=== PATIENT | male | born 1935 | race Two or more races ===

== ENCOUNTER 2019-02-17 17:51 | Inpatient (IN) ==
[2019-02-17 18:21] LABS: Basophils # (auto) 0.03 K/uL (0-0.2); Basophils % (auto) 0.5 %; Eosinophils # (auto) 0.24 K/uL (0-0.5); Eosinophils % (auto) 3.9 %; Hematocrit (blood only) 40.2 % (42-52); Hemoglobin 13.5 g/dL (14.0-18.0); Immature Granulocytes # (auto) 0.01 K/uL (0.00-0.02); Immature Granulocytes % (auto) 0.2 %; Lymphocytes # (auto) 1.85 K/uL (1.2-3.4); Mean Corpuscular Hgb Conc 33.6 g/dL (32-36); Mean Corpuscular Volume 89.7 fL (80-100); Mean Platelet Volume 12.4 fL (7.4-10.4); Monocytes # (auto) 0.51 K/uL (0.11-0.59); Monocytes % (auto) 8.3 %; Neutrophils # (auto) 3.53 K/uL (1.4-6.5); Neutrophils % (auto) 57.1 %; Platelet Count 149 K/uL (130-400); RDW Coefficient of Variation 13.4 % (11.5-14.5); RDW Standard Deviation 43.7 fL (36.4-46.3); Red Blood Count 4.48 M/uL (4.7-6.1); White Blood Count 6.17 K/uL (4.8-10.8)
[2019-02-17] MEDS ORDERED: ALBUT/IPRATROP 3MG/0.5MG NEB 3 ML VIAL NEB STA (18:34)
--- NOTE | 2019-02-17 18:39 | XRay Report ---
XR chest 1V portable HISTORY: Atypical Chest Pain COMPARISON: None. FINDINGS: No pneumothorax. No pleural effusions. The heart is top normal in size. There are poststern otomy changes. No focal lung consolidations to suggest pneumonia. No evidence for pulmonary edema. Qu estionable 9 mm nodule within the right upper lobe. IMPRESSION: 1. No acute process within the chest. 2. Questionable 9 mm nodule within the right upper lobe. This could be due to overlapping ribs. Follo w-up nonemergent PA and lateral views the chest or nonemergent chest CT are recommended for further e valuation. Electronically signed by: Sj Smith M.D. 02/17/2019 6:38 PM
[2019-02-17 18:41] LABS: Albumin Level 3.5 gm/dl (3.4-5.0); BUN Creatinine Ratio 13.7 (10-20); Bilirubin Direct 0.1 mg/dl (0-0.2); Calcium 8.8 mg/dl (8.5-10.1); Creatinine Clr Calc Pharmacy 39.8 ml/min; Est GFR (African American) 56.2; Est GFR (Non-African American) 48.5; Magnesium 2.1 mg/dl (1.8-2.4); Potassium 4.4 mmol/L (3.5-5.1)
[2019-02-17 18:52] LABS: Albumin Globulin Ratio 0.8 (0.9-2); Bilirubin,Total 0.4 mg/dl (0.2-1); Globulin 4.5 gm/dl (2.5-4.0); Phosphorus 3.1 mg/dl (2.5-4.9); Troponin I 0.372 ng/ml (0-0.045)
[2019-02-17 18:58] LABS: Partial Thromboplastin Ratio 0.9; Partial Thromboplastin Time 25.7 Seconds (21.0-31.0); Prothrombin Time 10.4 Seconds (9.0-12.0)
[2019-02-17] MEDS ORDERED: ASPIRIN CHEW 324 MG PO STA (19:05)
--- NOTE | 2019-02-17 19:08 | Emergency Department Note ---
Entered by Jodee Nix acting as a scribe for Dave Lawrence MD History of Present Illness General Chief complaint: Chest Pain Stated complaint: CHEST PAIN Time Seen by Provider: 02/17/19 18:05 Source: family (son) History of Present Illness Provider complaint: chest pain Onset (ago): day(s) 1 Location: chest Radiation: non-radiation Maximum Pain Intensity: 4 Quality: + other (heaviness) Associated symptoms: + cough and + other (+dizziness); no fever/chills The patient is a 83 year old male who presents to the Emergency Room with complaints of heaviness in her chest. Per the patient's son, the patient had an episode of sharp chest pain that occurred prior to arrival while he was just sitting down watching TV. He states that the patient has had a mild cough. He states that the patient denies any fever or chills. The patients son states that the patient has felt dizzy. He states that the patient had a triple bypass in 2005 and a stent placed in 2009. He notes that the patient takes Aspirin. Home Medications Home Medications Medication Instructions Recorded Confirmed Type aspirin 81 mg PO DAILY 02/17/19 02/17/19 History atorvastatin 40 mg PO DAILY 02/17/19 02/17/19 History carvedilol 25 mg PO BID 02/17/19 02/17/19 History ramipril 10 mg PO DAILY 02/17/19 02/17/19 History ranitidine HCl 150 mg PO BID 02/17/19 02/17/19 History tamsulosin 0.4 mg PO DAILY 02/17/19 02/17/19 History Allergies Allergy/AdvReac Type Severity Reaction Status Date / Time No Known Allergies Allergy Unverified 02/17/19 18:32 Past Med/Surg History Medical History BPH (benign prostatic hyperplasia) (Chronic) CKD (chronic kidney disease), stage III (Chronic) Ischemic cardiomyopathy (Chronic) CAD (coronary artery disease) (Chronic) GERD (gastroesophageal reflux disease) (Chronic) HLD (hyperlipidemia) (Chronic) HTN (hypertension) (Chronic) Surgical History History of coronary artery bypass graft (Chronic) 2006: CABG X 3 in [place] History of cardiac cath (Chronic) 2009: KRISS to LAD at [facility] in [place] Stented coronary artery (Acute) Family History Sister Cancer Social History Preferred Language: Rory Communication Ability: Effective 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 and A total of 10 systems reviewed and were otherwise negative Physical Exam Vital Signs Vital Signs - 24 hr 02/17/19 17:55 02/17/19 18:07 02/17/19 18:08 Temperature 36.4 C L Temperature Source Oral Sepsis Recent Fever Within 48 Hours No Sepsis New/Unexplained Change in Mental Status No Sepsis Action Taken by Nursing No Action Required Pulse Rate 79 67 Pulse Rate [Apical] Pulse Rate from SpO2 Sensor 78 Respiratory Rate 18 22 Blood Pressure 139/70 152/75 H Blood Pressure [Left Arm] Blood Pressure Mean 93 100 Blood Pressure Mean [Left Arm] Pulse Oximetry 100 99 97 Oxygen Delivery Method Room Air Room Air 02/17/19 18:21 02/17/19 18:30 02/17/19 18:45 Temperature Temperature Source Sepsis Recent Fever Within 48 Hours Sepsis New/Unexplained Change in Mental Status Sepsis Action Taken by Nursing Pulse Rate 65 Pulse Rate [Apical] 68 57 L Pulse Rate from SpO2 Sensor 69 Respiratory Rate 24 18 16 Blood Pressure Blood Pressure [Left Arm] 125/62 Blood Pressure Mean Blood Pressure Mean [Left Arm] 83 Pulse Oximetry 94 99 96 Oxygen Delivery Method Room Air Room Air 02/17/19 19:27 Temperature Temperature Source Sepsis Recent Fever Within 48 Hours Sepsis New/Unexplained Change in Mental Status Sepsis Action Taken by Nursing Pulse Rate Pulse Rate [Apical] 71 Pulse Rate from SpO2 Sensor Respiratory Rate 18 Blood Pressure Blood Pressure [Left Arm] 122/67 Blood Pressure Mean Blood Pressure Mean [Left Arm] 85 Pulse Oximetry 99 Oxygen Delivery Method Room Air GENERAL: Awake, alert, fatigued appearing, no distress HENT: Normocephalic, atraumatic. TM's normal. Oropharynx with dry mucous membranes and otherwise unremarkable. EYES: PERRL. EOMI. Normal conjunctiva. Sclera non-icteric. NECK: Supple. No nuchal rigidity. FROM. No JVD or bruit. RESPIRATORY: CTAB CARDIAC: Regular rate and irregular rhythm. ABDOMEN: Soft, non distended. No tenderness to palpation. No rebound or guarding. No masses. RECTAL: Deferred. MUSCULOSKELETAL: Unremarkable. No edema. No discoloration. Gross motor strength symmetric. NEURO: Normal sensorium. No sensory or motor deficits noted. SKIN: No rash or jaundice noted. LYMPH: No adenopathy Course 1827: The patient was evaluated in room B3B, and a complete history and physical examination were performed. 1944: I discussed the patient's case with Dr. [facility], he will accept the patient for further evaluation. Consultations Consultation #1: Dr. Epifanio Pires Time: 19:45 Administered Medications Carvedilol (Coreg) 25 mg PO BID DAMIAN Stop: 03/19/19 20:59 Last Admin: 02/17/19 23:55 Dose: 25 mg Documented by: [id number] Heparin Sodium/Dextrose (Heparin Sodium/Dextrose) 25,000 units in 500 mls @ 25 mls/hr IV .Q20H DAMIAN; Protocol Stop: 03/19/19 20:14 Last Admin: 02/17/19 20:38 Dose: Not Given Documented by: [id number] Nitroglycerin (Nitro-Bid 2%) 0.5 inch EXT Q6H DAMIAN Stop: 03/19/19 21:59 Last Admin: 02/18/19 00:02 Dose: Not Given Documented by: [id number] Ranitidine HCl (Zantac) 150 mg PO BID DAMIAN Stop: 03/19/19 22:08 Last Admin: 02/17/19 23:54 Dose: 150 mg Documented by: [id number] Discontinued Medications Albuterol (Duoneb) 3 ml NEB NOW STA Stop: 02/17/19 18:35 Last Admin: 02/17/19 18:42 Dose: 3 ml Documented by: [id number] Aspirin (Aspirin) 324 mg PO NOW STA Stop: 02/17/19 19:06 Last Admin: 02/17/19 19:08 Dose: 324 mg Documented by: [id number] Heparin Sodium/Dextrose (Heparin Sodium/Dextrose) Confirm Administered Dose 25,000 units IV .STK-MED ONE Stop: 02/17/19 20:36 Last Admin: 02/17/19 20:36 Dose: 25 ml Documented by: [id number] Cosigned by: [id number] Nitroglycerin (Nitrostat) 0.4 mg SL NOW STA Stop: 02/17/19 19:28 Last Admin: 02/17/19 19:36 Dose: 0.4 mg Documented by: [id number] Nitroglycerin (Nitrostat) 0.4 mg SL NOW STA Stop: 02/17/19 20:29 Last Admin: 02/17/19 20:15 Dose: 0.4 mg Documented by: [id number] Medical Decision Making Differential Diagnosis Differential diagnosis: Etiologies such as cardiac ischemia, aortic dissection, pulmonary embolism, pneumonia, pneumothorax, musculoskeletal, infections, pericarditis, myocarditis, esophageal rupture, gastrointestinal, as well as others were entertained. Medical Records Attestation: I reviewed the patient's medical records. Home Medications Current Medication List: was personally reviewed by me Laboratory Data Attestation: I reviewed the patient's lab results. Result diagrams: 02/17/19 18:11 02/17/19 18:11 Lab Results 02/17/19 02/17/19 02/17/19 Range/Units 18:11 18:11 18:11 WBC 6.17 (4.8-10.8) K/uL RBC 4.48 L (4.7-6.1) M/uL Hgb 13.5 L (14.0-18.0) g/dL Hct 40.2 L (42-52) % MCV 89.7 (80-100) fL MCH 30.1 (25-34) pg MCHC 33.6 (32-36) g/dL RDW Std Deviation 43.7 (36.4-46.3) fL RDW Coeff of Cassidy 13.4 (11.5-14.5) % Plt Count 149 (130-400) K/uL MPV 12.4 H (7.4-10.4) fL Immature Gran % (Auto) 0.2 % Neut % (Auto) 57.1 % Lymph % (Auto) 30.0 % Dickey % (Auto) 8.3 % Eos % (Auto) 3.9 % Baso % (Auto) 0.5 % Immature Gran # (Auto) 0.01 (0.00-0.02) K/uL Neut # (Auto) 3.53 (1.4-6.5) K/uL Lymph # (Auto) 1.85 (1.2-3.4) K/uL Dickey # (Auto) 0.51 (0.11-0.59) K/uL Eos # (Auto) 0.24 (0-0.5) K/uL Baso # (Auto) 0.03 (0-0.2) K/uL PT (9.0-12.0) Seconds INR (0.9-1.1) APTT (21.0-31.0) Seconds PTT Ratio Sodium 136 (136-145) mmol/L Potassium 4.4 (3.5-5.1) mmol/L Chloride 106 (98-107) mmol/L Carbon Dioxide 26 (21-32) mmol/L Anion Gap 4.0 (3-11) BUN 19 H (7-18) mg/dl Creatinine 1.36 (0.6-1.4) mg/dl Est Cr Clr Drug Dosing 39.8 ml/min Est GFR ( Amer) 56.2 Est GFR (Non-Af Amer) 48.5 BUN/Creatinine Ratio 13.7 (10-20) Glucose 92 (70-99) mg/dl Calcium 8.8 (8.5-10.1) mg/dl Phosphorus 3.1 (2.5-4.9) mg/dl Magnesium 2.1 (1.8-2.4) mg/dl Total Bilirubin 0.4 (0.2-1) mg/dl Direct Bilirubin 0.1 (0-0.2) mg/dl AST 22 (15-37) U/L ALT 25 (12-78) U/L Alkaline Phosphatase 82 (45-117) U/L Troponin I 0.372 H* (0-0.045) ng/ml NT-Pro-B Natriuret Pep 3367 H Cancelled (0-1800) pg/ml Total Protein 8.0 (6.4-8.2) gm/dl Albumin 3.5 (3.4-5.0) gm/dl Globulin 4.5 H (2.5-4.0) gm/dl Albumin/Globulin Ratio 0.8 L (0.9-2) Lipase 142 (73-393) U/L TSH (0.300-4.500) uIu/ml 02/17/19 02/17/19 Range/Units 18:11 18:11 WBC (4.8-10.8) K/uL RBC (4.7-6.1) M/uL Hgb (14.0-18.0) g/dL Hct (42-52) % MCV (80-100) fL MCH (25-34) pg MCHC (32-36) g/dL RDW Std Deviation (36.4-46.3) fL RDW Coeff of Cassidy (11.5-14.5) % Plt Count (130-400) K/uL MPV (7.4-10.4) fL Immature Gran % (Auto) % Neut % (Auto) % Lymph % (Auto) % Dickey % (Auto) % Eos % (Auto) % Baso % (Auto) % Immature Gran # (Auto) (0.00-0.02) K/uL Neut # (Auto) (1.4-6.5) K/uL Lymph # (Auto) (1.2-3.4) K/uL Dickey # (Auto) (0.11-0.59) K/uL Eos # (Auto) (0-0.5) K/uL Baso # (Auto) (0-0.2) K/uL PT 10.4 (9.0-12.0) Seconds INR 1.0 (0.9-1.1) APTT 25.7 (21.0-31.0) Seconds PTT Ratio 0.9 Sodium (136-145) mmol/L Potassium (3.5-5.1) mmol/L Chloride (98-107) mmol/L Carbon Dioxide (21-32) mmol/L Anion Gap (3-11) BUN (7-18) mg/dl Creatinine (0.6-1.4) mg/dl Est Cr Clr Drug Dosing ml/min Est GFR ( Amer) Est GFR (Non-Af Amer) BUN/Creatinine Ratio (10-20) Glucose (70-99) mg/dl Calcium (8.5-10.1) mg/dl Phosphorus (2.5-4.9) mg/dl Magnesium (1.8-2.4) mg/dl Total Bilirubin (0.2-1) mg/dl Direct Bilirubin (0-0.2) mg/dl AST (15-37) U/L ALT (12-78) U/L Alkaline Phosphatase (45-117) U/L Troponin I (0-0.045) ng/ml NT-Pro-B Natriuret Pep (0-1800) pg/ml Total Protein (6.4-8.2) gm/dl Albumin (3.4-5.0) gm/dl Globulin (2.5-4.0) gm/dl Albumin/Globulin Ratio (0.9-2) Lipase (73-393) U/L TSH 2.630 (0.300-4.500) uIu/ml Imaging Data Radiologist's Impression: Radiology results as stated below per my review and the radiologist's interpretation: XR chest 1V portable HISTORY: Atypical Chest Pain COMPARISON: None. FINDINGS: No pneumothorax. No pleural effusions. The heart is top normal in size. There are poststernotomy changes. No focal lung consolidations to suggest pneumonia. No evidence for pulmonary edema. Questionable 9 mm nodule within the right upper lobe. IMPRESSION: 1. No acute process within the chest. 2. Questionable 9 mm nodule within the right upper lobe. This could be due to overlapping ribs. Follow-up nonemergent PA and lateral views the chest or nonemergent chest CT are recommended for further evaluation. Electronically signed by: Sj Smith M.D. 02/17/2019 6:38 PM ECG Data Attestation: I personally reviewed and interpreted this ECG as follows: Indication: chest pain Rate (beats per minute): 77 Rhythm: atrial fibrillation Findings: + other (non specific T wave abnormality, QRS 96), + nonspecific-ST abn and + left axis deviation Comparison ECG Date: from (06/02/19) Change: the following changes noted (Atrial fibrillation is new, otherwise similar) Blood Pressure Blood Pressure Findings: Normal blood pressure Blood Pressure Disposition: did not require urgent referral MDM Narrative The patient is a pleasant 83-year-old gentleman from [place], non-Vietnamese speaking, with interpretation by son at bedside, with a past medical history of CAD status post CABG in 2005 and PCI in 2009 with a history of ischemic cardiomyopathy at the time of his bypass with an EF of 30% who presents emergency department with dry cough and congestion since yesterday with chest pain that was constant throughout the night and today but became much worse per hpi. On arrival patient is no acute distress, afebrile with stable vital signs. On exam the patient appears clinically dry. EKG demonstrates A. fib without overt acute ischemia. Although there are nonspecific ST and T wave abnormalities which do appear similar in morphology [facility], though atrial fibrillation does appear new. CXR negative for acute process. Troponin is elevated at 0.372 without prior values for comparison. Oth erwise WBC and platelets within normal limits. H/H 13.5/40.2 without prior values for comparison. Chemistry without acidosis. Electrolytes and LFTs unremarkable. Ordered for ASA. Patient reevaluated and appears in no acute distress however rates his chest discomfort as a 5/10 with no improvement with duoneb therefore will trial nitro. Case was discussed with Scott Mccollum PA-C, who evaluate the patient for admission. Will defer to defer decision for anticoagulation/heparin to admitting team. Impression & Plan Elevated troponin, Chest pain, Atrial fibrillation Discharge Plan Visit Data *Final* Discharge Date/Time: 02/17/19 21:45 Chief Complaint: Chest Pain Stated Complaint: CHEST PAIN ED Provider: Dave Lawrence Discharge Problem: Elevated troponin, Chest pain, Atrial fibrillation Patient Disposition: Admitted As Inpatient Discharge Instructions Interventions: ED Discharge Assessment Last Done: 02/17/19 21:45 Discharge Problem: Chest pain Qualifiers: Chest pain type: unspecified Qualified Code(s): R07.9 - Chest pain, unspecified Atrial fibrillation Qualifiers: Atrial fibrillation type: unspecified Qualified Code(s): I48.91 - Unspecified atrial fibrillation The scribe's documentation has been prepared under my direction and personally reviewed by me in its entirety. I confirm that the note above accurately reflects all work, treatment, procedures, and medical decision making performed by me.
[2019-02-17] MEDS ORDERED: NITROGLYCERIN SL 0.4 MG/TAB TAB SL STA ×2 (19:27→20:28)
[2019-02-17] MEDS ORDERED: Heparin IV Standard *NO* Bolus IV ONE (20:10)
[2019-02-17] MEDS ORDERED: HEPARIN 25000 UNIT/500 ML D5W IV ONE (20:35)
[2019-02-17] MEDS: HEPARIN SODIUM/DEXTROSE 25,000 UNITS/500 ML BAG IV SCH ×2 (20:36→20:38)
--- NOTE | 2019-02-17 20:44 | History & Physical Report ---
Date of Service February 17, 2019 Assessment & Plan (1) Chest pain: (2) Elevated troponin: (3) Atrial fibrillation: Pt is 83 y/o M with PMH CAD s/p CABG in 2005, s/p KRISS to LAD in 2009, ischemic cardiomyopathy with EF: 30% in 2006 with echo in 2017 with EF: 55%, HTN, HLD, GERD, CKD III presented to ER with complaint of slight chest pressure that began around midnight with worsening around 1pm today with associated SOB, diaphoresis and pain 8/10. In ER reports pain 4/10. In ER EKG with poor tracing, rate 66, a-fib with nonspecific ST changes without significant ST elevation. P: 57-70's. BP: 139/70, 125/62, R: 18, 100% on RA. Troponin: 0.37. No acute electrolyte abnormality Pt given nitro in ER however swallowed first tablet. Given 2nd nitro SL with report of no further chest pain. R/O ACS. Risk factors: CAD, HTN, hyperlipidemia -Monitor Vitals -Repeat EKG in am -Will trend troponin -Heparin IV -Nitropaste 0.5in Q6H -Echo -Lipid panel in am, continue statin -ASA & continue beta mena -Repeat EKG for any CP -TSH pending -Cardiology consult, workers compensation claims adjuster aware (4) Lung nodule: Single view CXR: Questionable 9 mm nodule within the right upper lobe. This could be due to overlapping ribs. Follow-up nonemergent PA and lateral views the chest or nonemergent chest CT are recommended for further evaluation. -Obtain 2 view CXR to further assess -May need to consider CT chest (5) CKD (chronic kidney disease), stage III: Cr: 1.36. Baseline ~1.3 -Monitor renal functions -Avoid nephrotoxic agents when possible (6) HTN (hypertension): Stable -Continue carvedilol, ramipril (7) GERD (gastroesophageal reflux disease): -Continue H2 mena (8) BPH (benign prostatic hyperplasia): -Continue tamsulosin DVT Prophylaxis -On Heparin IV Full Code as per discussion with pt and pt's son Follows with Dr Rodriguez for routine care Pt was seen and care coordinated with Dr Patel. See addendum History of Present Illness Chief Complaint: CP Primary Care Provider: Dr Rodriguez Pt is 83 y/o M with PMH CAD s/p CABG in 2005, s/p KRISS to LAD in 2009, ischemic cardiomyopathy, HTN, HLD, GERD, CKD III, BPH presented to ER with complaint of chest pain. History obtained through patient's son as patient does not speak Turkish. 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 Reported around midnight last night started with slight anterior chest pressure. States approximately 1 PM today chest pressure increased and rated a 8 out of 10 on pain scale with associated shortness of breath and diaphoresis and dizziness with standing. This evening in ER patient reporting chest pain 4 out of 10 on pain scale and reports feels like gas currently. According to records pt had EF: 30% in 2005 at the time of his CABG. 2017 echo: EF: 55-59%. Denies any current shortness of breath or dizziness. Denies any nausea or vomiting, fever/chills, diarrhea, constipation, BHATIA, syncope, vision changes, neck pain, orthopnea, palpi tations, cough, sore throat, choking, otalgia, rhinorrhea, abdominal pain, paresthesias, weakness, extremity weakness, extremity edema, rashes, urinary symptoms, melena, hematochezia, epistaxis. Allergies Allergy/AdvReac Type Severity Reaction Status Date / Time No Known Allergies Allergy Unverified 02/17/19 18:32 Home Medications Home Medications Medication Instructions Recorded Confirmed Type aspirin 81 mg PO DAILY 02/17/19 02/17/19 History atorvastatin 40 mg PO DAILY 02/17/19 02/17/19 History carvedilol 25 mg PO BID 02/17/19 02/17/19 History ramipril 10 mg PO DAILY 02/17/19 02/17/19 History ranitidine HCl 150 mg PO BID 02/17/19 02/17/19 History tamsulosin 0.4 mg PO DAILY 02/17/19 02/17/19 History Past Med/Surg History Medical History BPH (benign prostatic hyperplasia) (Chronic) CKD (chronic kidney disease), stage III (Chronic) Ischemic cardiomyopathy (Chronic) CAD (coronary artery disease) (Chronic) GERD (gastroesophageal reflux disease) (Chronic) HLD (hyperlipidemia) (Chronic) HTN (hypertension) (Chronic) Surgical History History of coronary artery bypass graft (Chronic) 2006: CABG X 3 in [place] History of cardiac cath (Chronic) 2010: KRISS to LAD at [facility] in [place] Stented coronary artery (Acute) Family History Sister Cancer Social History Preferred Language: Rory Communication Ability: Effective Rn Clinical Documentation Required: Yes Beliefs That Will Affect Care: None Current Living Situation: Family Feels Safe at Home: Yes Safety Concerns: Feels Safe At This Time Smoking Status: Never smoker Hx Alcohol Use: No Hx Substance Use: No Review of Systems Review of Systems: All systems reviewed & are unremarkable except as noted in HPI & below Physical Exam Physical Exam: General: no acute distress, pleasant, WDWN Head: normocephalic, atraumatic Eyes: PERRL, EOM's intact, conjunctiva non-injected, anicteric ENT: normal inspection external ears, nose, mucous membranes moist Neck: supple, trachea midline Lungs: clear, no respiratory distress, no wheezing/rhonchi/rales CV: RRR, no murmur, no pretibial edema Chest: healed surgical incision over sternum with keloid, no rashes, mild tenderness to palpation over distal sternum Abd: normal BS, soft, non-tender Ext: no cyanosis, no calf tenderness Neuro: A&O x 3, no focal deficits noted, normal affect Skin: warm, dry Results & Data Vital Signs (Past 12 Hours) Vital Signs Temp Pulse Pulse Resp BP BP Pulse Ox 02/17/19 19:27 71 18 122/67 99 02/17/19 18:45 57 L 16 96 02/17/19 18:30 68 18 125/62 99 02/17/19 18:21 65 24 94 02/17/19 18:08 97 02/17/19 18:07 67 22 152/75 H 99 02/17/19 17:55 36.4 C L 79 18 139/70 100 Laboratory Results Short CBC 02/17/19 Range/Units 18:11 WBC 6.17 (4.8-10.8) K/uL Hgb 13.5 L (14.0-18.0) g/dL Hct 40.2 L (42-52) % Plt Count 149 (130-400) K/uL BMP 02/17/19 18:11 Sodium 136 Potassium 4.4 Chloride 106 Carbon Dioxide 26 BUN 19 H Creatinine 1.36 Glucose 92 Calcium 8.8 Cardiac Enzymes 02/17/19 Range/Units 18:11 Troponin I 0.372 H* (0-0.045) ng/ml Liver Function 02/17/19 Range/Units 18:11 Total Bilirubin 0.4 (0.2-1) mg/dl Direct Bilirubin 0.1 (0-0.2) mg/dl AST 22 (15-37) U/L ALT 25 (12-78) U/L Alkaline Phosphatase 82 (45-117) U/L Albumin 3.5 (3.4-5.0) gm/dl Diagnostic Findings CXR: IMPRESSION: 1. No acute process within the chest. 2. Questionable 9 mm nodule within the right upper lobe. This could be due to overlapping ribs. Follow-up nonemergent PA and lateral views the chest or nonemergent chest CT are recommended for further evaluation. Supervising Physician Co-Signing Physician Notes I saw this patient with the physician media assistant, I participated in the history, physical, review of systems, and physical exam. I reviewed the medications with the patient and the physician media assistant and helped reconcile the medications. I helped take a detailed family and social history as well. I formulated the assessment and plan personally with the physician media assistant and went over it with the patient. ROS-No Headache, No Visual Changes, No Nausea, No Vomiting, No Fever, No Chills, No Neck Pain or Stiffness, + Chest Pain, No Palpitations, No SOB, No ORDONEZ, No Cough, No Sputum, No Wheezing, No Abdominal Pain, No Diarrhea, No Hematemesis, No Hemoptysis, No Unexpected Weight Loss, No Flank pain, No Melena, No Hematochezia, No Frequency, No Urgency, No Burning, No Hematuria, No Rashes, No Diaphoresis. Appetite is Normal Physical Exam Gen-AAO x 3, NAD, Afebrile Head-NCAT, EOMI, PERRLA, Anicteric Sclera, No Posterior Pharyngeal Erythema Neck-Supple, No JVD, No Thyromegaly, No Masses, No LAD, No Bruits Lungs-Clear to Auscultation Bilaterally, No Rales, No Rhonchi, No Wheezing, No Crepitus Chest-No S4, +S1, +S2, No S3, No Murmurs, No Rubs, No Gallops, No Ectopy Abdomen-Soft, Bowel Sounds Present, Non Tender, Non Distended, No Hepatomegaly, No Splenomegaly, No Palpable Masses, No Rebound, No Rigidity, No Guarding Musculoskeletal-Full Range of Motion Bilaterally, No CVAT Extremities-No Cyanosis, No Clubbing, No Edema Nuero-Cranial Nerves II-XII grossly intact, Motor WNL, DTRs WNL, Strength WNL, Non Focal Psych-Normal Mood (1) Atrial fibrillation Atrial fibrillation type: unspecified Qualified Code(s): I48.91 - Unspecified atrial fibrillation (2) Chest pain Chest pain type: unspecified Qualified Code(s): R07.9 - Chest pain, unspecified
[2019-02-17] MEDS ORDERED: ACETAMINOPHEN 325 MG TAB PO PRN (22:09)
--- NOTE | 2019-02-17 22:20 | XRay Report ---
XR chest 2V routine HISTORY: F/U possible nodule COMPARISON: Chest 02/17/2019. FINDINGS: The lungs appear clear. No nodule identified within the right upper lobe on repeat imaging. The heart is normal in size. No pleural effusions. No pneumothorax. Poststernotomy changes are again noted. IMPRESSION: No acute process. Electronically signed by: Sj Smith M.D. 02/17/2019 10:19 PM
[2019-02-17] MEDS: NITROGLYCERIN 2% OINTMENT 30GM TUBE EXT SCH (23:53)
[2019-02-17] MEDS: CARVEDILOL 25 MG TAB PO SCH (23:55)
[2019-02-18] MEDS: NITROGLYCERIN 2% OINTMENT 30GM TUBE EXT SCH ×5 (00:02→21:37)
[2019-02-18 03:17] LABS: BUN Creatinine Ratio 14.5 (10-20); Calcium 8.5 mg/dl (8.5-10.1); Creatinine Clr Calc Pharmacy 44.8 ml/min; Est GFR (African American) 64.7; Est GFR (Non-African American) 55.8; Potassium 4.1 mmol/L (3.5-5.1)
[2019-02-18 03:21] LABS: Hemoglobin 12.3 g/dL (14.0-18.0); Mean Corpuscular Hgb Conc 34.2 g/dL (32-36); Mean Corpuscular Volume 87.4 fL (80-100); Mean Platelet Volume 12.4 fL (7.4-10.4); Partial Thromboplastin Ratio 3.3; Platelet Count 128 K/uL (130-400); RDW Coefficient of Variation 13.3 % (11.5-14.5); RDW Standard Deviation 42.6 fL (36.4-46.3); Red Blood Count 4.12 M/uL (4.7-6.1); White Blood Count 4.93 K/uL (4.8-10.8)
[2019-02-18 03:22] LABS: Platelet Estimate Decreased (Normal)
[2019-02-18 03:23] LABS: Partial Thromboplastin Time 88.7 Seconds (21.0-31.0)
[2019-02-18 03:29] LABS: Troponin I 6.08 ng/ml (0-0.045)
[2019-02-18] MEDS: ATORVASTATIN 40 MG TAB PO SCH (08:33)
[2019-02-18] MEDS: ASPIRIN 81 MG ECTAB PO SCH (08:33)
[2019-02-18] MEDS ORDERED: ENALAPRIL MALEATE 10 MG TAB PO SCH (09:00)
[2019-02-18] MEDS ORDERED: TAMSULOSIN HCL 0.4 MG CAP PO SCH (09:00)
[2019-02-18] MEDS ORDERED: NITROGLYCERIN SL 0.4 MG/TAB TAB SL STA (09:23)
[2019-02-18] MEDS ORDERED: MoRPHine SULFATE 2 MG/ML CARP IV STA (09:23)
[2019-02-18] MEDS ORDERED: MoRPHine SULFATE 2 MG/ML CARP ONE (09:31)
[2019-02-18] MEDS ORDERED: NITROGLYCERIN SL 0.4 MG/TAB TAB ONE (09:31)
--- NOTE | 2019-02-18 10:00 | Cardiology Consultation ---
Date of Consultation February 18, 2019 Assessment & Plan (1) Non-ST elevated myocardial infarction: Patient has a history of known coronary disease and presents with chest pressure pain of nearly 3 days duration with elevated troponin. EKG demonstrates no acute evolution. Echocardiogram demonstrates inferior posterior wall motion abnormality question more pronounced versus similar to prior studies preserved overall LV function. Patient has been gone appropriately on therapies with IV heparin topical nitrates. Blood pressures are trending slightly lower. Atrial fibrillation per review of records is newly observed without distinct inciting cause Plan switch carvedilol to Toprol continue beta-mena with less blood pressure response Obtain records from prior cardiac catheterization 2009 [place], [place] Keep n.p.o. after midnight for possible cardiac catheterization tomorrow (2) Atrial fibrillation: Newly observed (3) History of coronary artery bypass graft: (4) History of cardiac cath: (5) HTN (hypertension): (6) HLD (hyperlipidemia): History of Present Illness Reason for Consultation: Chest pain, elevated troponin Requesting Physician: Dr. Medina Attending Physician: Jesus Manuel Medina MD History of Present Illness Patient is an 83-year-old male from [place] who was relocated to the [facility] in the fall 2016. His past medical history is notable for 1. Atherosclerotic coronary disease status post coronary bypass grafting 2005, VAZQUEZ graft to LAD, saphenous vein graft to obtuse marginal, saphenous vein graft to posterior descending artery for three-vessel disease following inferior myocardial infarction 2. Recurrent angina with subsequent coronary intervention [facility] receiving a drug-eluting stent to the proximal left anterior descending 2009 3. Stable angina pectoris 4. Hypertension 5. Hyperlipidemia Patient does not speak Kinyarwanda but is accompanied by his son who patient is designated as his automotive parts interpreter. Declines translation service. Presents now with approximately 3-day history of chest pressure pain which worsened yesterday with associated diaphoresis. Symptoms have eased in hospital with medical therapies though still has a low-grade 2-4 discomfort. EKGs have not demonstrated acute ST segment changes or dynamic elevation. Troponins however are elevated and atrial fibrillation is newly observed. Echocardiogram on preliminary review this morning demonstrates hypokinesis of the right coronary distribution with generally preserved ejection fraction 50- 55% consistent with prior studies, inferior wall motion normality observed in 2005 per records Patient is a modestly active about home. No history of TIA or stroke notes syncope or near syncope no tachypalpitations. No previously observed atrial fibrillation per records are patient recall. No bleeding difficulties melena hematochezia dysuria hematuria. No recent fevers or infections. Appetite is generally good. No cough hoarseness wheeze or hemoptysis noted. Allergies Allergy/AdvReac Type Severity Reaction Status Date / Time No Known Allergies Allergy Unverified 02/17/19 18:32 Home Medications Home Medications Medication Instructions Recorded Confirmed Type aspirin 81 mg PO DAILY 02/17/19 02/17/19 History atorvastatin 40 mg PO DAILY 02/17/19 02/17/19 History carvedilol 25 mg PO BID 02/17/19 02/17/19 History ramipril 10 mg PO DAILY 02/17/19 02/17/19 History ranitidine HCl 150 mg PO BID 02/17/19 02/17/19 History tamsulosin 0.4 mg PO DAILY 02/17/19 02/17/19 History Patient History Medical History BPH (benign prostatic hyperplasia) (Chronic) CKD (chronic kidney disease), stage III (Chronic) Ischemic cardiomyopathy (Chronic) CAD (coronary artery disease) (Chronic) GERD (gastroesophageal reflux disease) (Chronic) HLD (hyperlipidemia) (Chronic) HTN (hypertension) (Chronic) Surgical History History of coronary artery bypass graft (Chronic) 2006: CABG X 3 in [place] History of cardiac cath (Chronic) 2010: KRISS to LAD at [facility] in [place] Stented coronary artery (Acute) Family History Sister Cancer Social History Preferred Language: Rory Communication Ability: Effective Manager Of Exhibitions And Collections Required: Yes Beliefs That Will Affect Care: None Current Living Situation: Family Feels Safe at Home: Yes Safety Concerns: Feels Safe At This Time Smoking Status: Never smoker Hx Alcohol Use: No Hx Substance Use: No Review of Systems Review of Systems: All systems reviewed & are unremarkable except as noted in HPI & below Physical Exam Constitutional: WD/WN, vitals as above Eyes: PERRL, conjunctivae normal, anicteric sclerae ENMT: external ear and nose normal, oropharynx normal Neck: trachea midline, no thyromegaly Respiratory: normal respiratory effort, lungs clear to auscultation Cardiovascular: Rate/Rhythm: + irregularly irregular Heart Sounds: normal S1, normal S2 and + murmur (Grade 1/6 systolic murmur, faint. No diastolic murmur); no gallop Palpation: normal PMI Vessels: normal carotid upstroke and radial pulses present; no JVD and no carotid bruit Extremities: no edema Gastrointestinal (Abdomen): normal bowel sounds, soft, nontender, no hepatosplenomegaly Musculoskeletal: no cyanosis or clubbing, extremities motor strength 5/5 Skin: no rashes, warm and dry Neurologic: PERRL, EOMI, accommodation nl, no face palsy, no dysarthria Psychiatric: A+Ox3, euthymic affect Results & Data Vital Signs (Past 12 Hours) Vital Signs Temp Pulse Pulse Resp BP Pulse Ox 02/18/19 07: 37.0 C 64 16 94/48 L 98 02/18/19 05:52 36.3 C L 66 16 131/77 99 02/18/19 03:59 36.3 C L 68 18 110/66 97 02/18/19 00:02 66 93/56 L 02/17/19 22:11 36.7 C 67 16 114/50 L 98 Laboratory Results Laboratory Results - last 24 hr 02/17/19 02/17/19 02/17/19 18:11 18:11 18:11 WBC 6.17 RBC 4.48 L Hgb 13.5 L Hct 40.2 L MCV 89.7 MCH 30.1 MCHC 33.6 RDW Std Deviation 43.7 RDW Coeff of Cassidy 13.4 Plt Count 149 MPV 12.4 H Immature Gran % (Auto) 0.2 Neut % (Auto) 57.1 Lymph % (Auto) 30.0 [place] % (Auto) 8.3 Eos % (Auto) 3.9 Baso % (Auto) 0.5 Immature Gran # (Auto) 0.01 Neut # (Auto) 3.53 Lymph # (Auto) 1.85 [place] # (Auto) 0.51 Eos # (Auto) 0.24 Baso # (Auto) 0.03 Platelet Estimate PT INR APTT PTT Ratio Sodium 136 Potassium 4.4 Chloride 106 Carbon Dioxide 26 Anion Gap 4.0 BUN 19 H Creatinine 1.36 Est Cr Clr Drug Dosing 39.8 Est GFR ( Amer) 56.2 Est GFR (Non-Af Amer) 48.5 BUN/Creatinine Ratio 13.7 Glucose 92 Calcium 8.8 Phosphorus 3.1 Magnesium 2.1 Total Bilirubin 0.4 Direct Bilirubin 0.1 AST 22 ALT 25 Alkaline Phosphatase 82 Troponin I 0.372 H* NT-Pro-B Natriuret Pep 3367 H Cancelled Total Protein 8.0 Albumin 3.5 Globulin 4.5 H Albumin/Globulin Ratio 0.8 L Triglycerides Cholesterol LDL Cholesterol, Calc VLDL Cholesterol, Calc HDL Cholesterol Cholesterol/HDL Ratio Lipase 142 TSH 02/17/19 02/17/19 02/18/19 18:11 18:11 02:44 WBC 4.93 RBC 4.12 L Hgb 12.3 L Hct 36.0 L MCV 87.4 MCH 29.9 MCHC 34.2 RDW Std Deviation 42.6 RDW Coeff of Cassidy 13.3 Plt Count 128 L MPV 12.4 H Immature Gran % (Auto) Neut % (Auto) Lymph % (Auto) [place] % (Auto) Eos % (Auto) Baso % (Auto) Immature Gran # (Auto) Neut # (Auto) Lymph # (Auto) [place] # (Auto) Eos # (Auto) Baso # (Auto) Platelet Estimate Decreased L PT 10.4 INR 1.0 APTT 25.7 PTT Ratio 0.9 Sodium Potassium Chloride Carbon Dioxide Anion Gap BUN Creatinine Est Cr Clr Drug Dosing Est GFR ( Amer) Est GFR (Non-Af Amer) BUN/Creatinine Ratio Glucose Calcium Phosphorus Magnesium Total Bilirubin Direct Bilirubin AST ALT Alkaline Phosphatase Troponin I NT-Pro-B Natriuret Pep Total Protein Albumin Globulin Albumin/Globulin Ratio Triglycerides Cholesterol LDL Cholesterol, Calc VLDL Cholesterol, Calc HDL Cholesterol Cholesterol/HDL Ratio Lipase TSH 2.630 02/18/19 02/18/19 02/18/19 02:44 02:44 08:09 WBC RBC Hgb Hct MCV MCH MCHC RDW Std Deviation RDW Coeff of Cassidy Plt Count MPV Immature Gran % (Auto) Neut % (Auto) Lymph % (Auto) [place] % (Auto) Eos % (Auto) Baso % (Auto) Immature Gran # (Auto) Neut # (Auto) Lymph # (Auto) [place] # (Auto) Eos # (Auto) Baso # (Auto) Platelet Estimate PT INR APTT 88.7 H* PTT Ratio 3.3 Sodium 139 Potassium 4.1 Chloride 109 H Carbon Dioxide 27 Anion Gap 3.0 BUN 18 Creatinine 1.21 Est Cr Clr Drug Dosing 44.8 Est GFR ( Amer) 64.7 Est GFR (Non-Af Amer) 55.8 BUN/Creatinine Ratio 14.5 Glucose 102 H Calcium 8.5 Phosphorus Magnesium Total Bilirubin Direct Bilirubin AST ALT Alkaline Phosphatase Troponin I 6.080 H* 7.830 H* NT-Pro-B Natriuret Pep Total Protein Albumin Globulin Albumin/Globulin Ratio Triglycerides 51 Cholesterol 108 LDL Cholesterol, Calc 54 VLDL Cholesterol, Calc 10 HDL Cholesterol 44 Cholesterol/HDL Ratio 3 Lipase TSH 02/18/19 10:05 WBC RBC Hgb Hct MCV MCH MCHC RDW Std Deviation RDW Coeff of Cassidy Plt Count MPV Immature Gran % (Auto) Neut % (Auto) Lymph % (Auto) [place] % (Auto) Eos % (Auto) Baso % (Auto) Immature Gran # (Auto) Neut # (Auto) Lymph # (Auto) [place] # (Auto) Eos # (Auto) Baso # (Auto) Platelet Estimate PT INR APTT Pending PTT Ratio Pending Sodium Potassium Chloride Carbon Dioxide Anion Gap BUN Creatinine Est Cr Clr Drug Dosing Est GFR ( Amer) Est GFR (Non-Af Amer) BUN/Creatinine Ratio Glucose Calcium Phosphorus Magnesium Total Bilirubin Direct Bilirubin AST ALT Alkaline Phosphatase Troponin I NT-Pro-B Natriuret Pep Total Protein Albumin Globulin Albumin/Globulin Ratio Triglycerides Cholesterol LDL Cholesterol, Calc VLDL Cholesterol, Calc HDL Cholesterol Cholesterol/HDL Ratio Lipase TSH ECG Additional Comments: 18-FEB-2019 09:22:33 [facility]-2 IA ROUTINE RETRIEVAL Atrial fibrillation with a competing junctional pacemaker Left axis deviation Abnormal ECG When compared with ECG of 18-FEB-2019 03:50, (unconfirmed) No significant change was found (1) Atrial fibrillation Atrial fibrillation type: unspecified Qualified Code(s): I48.91 - Unspecified atrial fibrillation
[2019-02-18 10:39] LABS: Partial Thromboplastin Ratio 4.4
[2019-02-18 10:54] LABS: Partial Thromboplastin Time 120.1 Seconds (21.0-31.0)
[2019-02-18] MEDS: METOPROLOL SUCC 25MG EXT REL TAB PO SCH ×2 (11:11→21:29)
--- NOTE | 2019-02-18 12:08 | Hospitalist Progress Note ---
Date of Service February 18, 2019 Assessment & Plan (1) Chest pain: "Pt is 83 y/o M with PMH CAD s/p CABG in 2005, s/p KRISS to LAD in 2009, ischemic cardiomyopathy with EF: 30% in 2005 with echo in 2017 with EF: 55%, HTN, HLD, GERD, CKD III presented to ER with complaint of slight chest pressure chest pain secondary to Non-ST elevated myocardial infarction -atherosclerotic coronary disease status post coronary bypass grafting 2005, VAZQUEZ graft to LAD, saphenous vein graft to obtuse marginal, saphenous vein graft to posterior descending artery for three-vessel disease following inferior myocardial infarction in 2009; Recurrent angina with subsequent coronary intervention [facility] receiving a drug-eluting stent to the proximal left anterior descending 2009 -on this admission, patient received nitro in the ED and started on heparin drip when initial troponin of 6 -Troponins rising to 7.8 -to date as of 02/18/19l EKG demonstrates no acute evolution -02/18/19 Echocardiogram demonstrates inferior posterior wall motion abnormality question more pronounced versus similar to prior studies preserved overall LV function. -as per cardiology service, monitor on IV heparin and switched carvedilol to metoprolol 12.5 BID to minimize hypotension -patient signed released of medical information for previous cardiology records from [place] -NPO after midnight if cardiac cath needed for tomorrow (3) (2) Elevated troponin: -trend troponon, management as above (3) Atrial fibrillation: Atrial fibrillation -Newly observed on this admission -heart rate is controlled, beta mena as per cardiology (4) Lung nodule: suspected lung nodule ruled out Single view CXR: Questionable 9 mm nodule within the right upper lobe. This could be due to overlapping ribs. Follow-up nonemergent PA and lateral views the chest or nonemergent chest CT are recommended for further evaluation. However on follow up XR chest 2V routine: The lungs appear clear. No nodule identified within the right upper lobe on repeat imaging. The heart is normal in size. No pleural effusions. No pneumothorax. Poststernotomy changes are again noted (5) CKD (chronic kidney disease), stage III: -Monitor renal functions (6) HTN (hypertension): -hold blood pressure medications because patient's blood pressure was noted to be low on 02/18/19 AM (7) GERD (gastroesophageal reflux disease): -Continue H2 mena (8) BPH (benign prostatic hyperplasia): -hold tamsulosin for now DVT Prophylaxis -On Heparin IV Full Code son Emigdio ([phone]) Subjective This AM when seen by hospitalist, patient with his son Emigdio ([phone]) in the room and patient laying on bed. Patient not in acute distress but reported 4 out of 10 chest discomfort like a cramping sensation. patient already on heparin drip. Troponins noted to be rising from 6 to 7.8. Patient breathing comfortable. denies pain elsewhere. no vomiting. Cardiology service also evaluated. Patient was ordered nitro and morphine. Cardiology service discussed with patient and his son. At this time the plan to have cardiac cath for tomorrow. Patient eating diet for lunch and no acute distress. Physical Exam Constitutional: comfortable Eyes: PERRL, conjunctivae normal, anicteric sclerae EOM intact bilaterally ENMT: external ear and nose normal, oropharynx normal Neck: normal visual inspection Respiratory: normal respiratory effort, lungs clear to auscultation Cardiovascular: RRR, no murmur, no edema Gastrointestinal (Abdomen): normal bowel sounds, soft, nontender, no hepatosplenomegaly Musculoskeletal: Head/Neck/Chest: normocephalic and head atraumatic Neurologic: PERRL, EOMI, accommodation nl, no face palsy, no dysarthria CN's II-XI intact bilaterally Psychiatric: A+Ox3, euthymic affect Results & Data Vital Signs (Past 12 Hours) Vital Signs Temp Pulse Pulse Resp BP Pulse Ox 02/18/19 11:08 36.2 C L 70 16 118/69 98 02/18/19 09:30 109/68 02/18/19 07:19 37.0 C 64 16 94/48 L 98 02/18/19 05:52 36.3 C L 66 16 131/77 99 02/18/19 03:59 36.3 C L 68 18 110/66 97 (1) Atrial fibrillation Atrial fibrillation type: unspecified Qualified Code(s): I48.91 - Unspecified atrial fibrillation (2) Chest pain Chest pain type: unspecified Qualified Code(s): R07.9 - Chest pain, unspecified
[2019-02-18 18:56] LABS: Partial Thromboplastin Ratio 2.8
[2019-02-18 19:09] LABS: Partial Thromboplastin Time 74.6 Seconds (21.0-31.0)
[2019-02-18] MEDS: CARVEDILOL 25 MG TAB PO SCH (20:44)
[2019-02-18] MEDS: HEPARIN SODIUM/DEXTROSE 25,000 UNITS/500 ML BAG IV SCH (21:25)
[2019-02-19 01:53] LABS: Partial Thromboplastin Ratio 2.4
[2019-02-19 01:57] LABS: Partial Thromboplastin Time 64.5 Seconds (21.0-31.0)
[2019-02-19] MEDS: SODIUM CHLORIDE 0.9% 1000ML 1,000 ML IV SCH ×4 (02:09→21:45)
[2019-02-19] MEDS: NITROGLYCERIN 2% OINTMENT 30GM TUBE EXT SCH ×3 (04:53→17:54)
[2019-02-19 07:03] LABS: Basophils # (auto) 0.03 K/uL (0-0.2); Basophils % (auto) 0.5 %; Eosinophils # (auto) 0.27 K/uL (0-0.5); Eosinophils % (auto) 4.5 %; Hematocrit (blood only) 38.2 % (42-52); Hemoglobin 12.7 g/dL (14.0-18.0); Lymphocytes # (auto) 1.82 K/uL (1.2-3.4); Lymphocytes % (auto) 30.5 %; Mean Corpuscular Hgb Conc 33.2 g/dL (32-36); Mean Corpuscular Volume 89.3 fL (80-100); Monocytes # (auto) 0.51 K/uL (0.11-0.59); Monocytes % (auto) 8.5 %; Neutrophils # (auto) 3.34 K/uL (1.4-6.5); Platelet Count 140 K/uL (130-400); RDW Coefficient of Variation 13.4 % (11.5-14.5); RDW Standard Deviation 43.5 fL (36.4-46.3); Red Blood Count 4.28 M/uL (4.7-6.1); White Blood Count 5.97 K/uL (4.8-10.8)
[2019-02-19 07:22] LABS: Partial Thromboplastin Ratio 2.4
[2019-02-19 07:42] LABS: Albumin Level 3.2 gm/dl (3.4-5.0); BUN Creatinine Ratio 14.4 (10-20); Calcium 8.9 mg/dl (8.5-10.1); Creatinine Clr Calc Pharmacy 46.3 ml/min; Est GFR (African American) 67.4; Est GFR (Non-African American) 58.1; Magnesium 2.2 mg/dl (1.8-2.4); Potassium 3.9 mmol/L (3.5-5.1)
[2019-02-19 07:43] LABS: Partial Thromboplastin Time 64.1 Seconds (21.0-31.0)
[2019-02-19 07:48] LABS: Albumin Globulin Ratio 0.9 (0.9-2); Bilirubin,Total 0.6 mg/dl (0.2-1); Globulin 3.7 gm/dl (2.5-4.0); Total Protein 6.9 gm/dl (6.4-8.2); Troponin I 2.79 ng/ml (0-0.045)
--- NOTE | 2019-02-19 08:46 | Hospitalist Progress Note ---
Date of Service February 19, 2019 Assessment & Plan (1) Chest pain: "Pt is 83 y/o M with PMH CAD s/p CABG in 2005, s/p KRISS to LAD in 2009, ischemic cardiomyopathy with EF: 30% in 2005 with echo in 2017 with EF: 55%, HTN, HLD, GERD, CKD III presented to ER with complaint of slight chest pressure chest pain secondary to Non-ST elevated myocardial infarction -atherosclerotic coronary disease status post coronary bypass grafting 2005, VAZQUEZ graft to LAD, saphenous vein graft to obtuse marginal, saphenous vein graft to posterior descending artery for three-vessel disease following inferior myocardial infarction in 2009; Recurrent angina with subsequent coronary intervention [facility] receiving a drug-eluting stent to the proximal left anterior descending 2009 -on this admission, patient received nitro in the ED and started on heparin drip when initial troponin of 6 -Troponins rising to 7.8 and plateau -02/18/19 EKG demonstrates no acute evolution -02/18/19 Echocardiogram demonstrates inferior posterior wall motion abnormality question more pronounced versus similar to prior studies preserved overall LV function. -as per cardiology service, monitor on IV heparin and switched carvedilol to metoprolol 12.5 BID to minimize hypotension starting 02/18/19 and patient signed released of medical information for previous cardiology records from [place] -as of 02/19/18 AM, patient is NPO if cardiac cath needed. Patient reports he has not had chest discomfort before yesterday lunch time. Patient denies chest pain currently. no shortness of breath. no abdomen pain. no vomiting. Continues to be on telemetry monitoring. On secured entrance monitor patient continues to have atrial f ibrillation. Patient and son expresses some concern that if cardiology service elects to do cardiac cath that access of right femoral may be avoided if possible because of history of cardiac caths in the past to the area of right groin and patient has concerns about cysts in the area. On exam, by hospitalist patient's groin areas appear symmetric and no palpable masses (2) Elevated troponin: -troponins downtrending after peak of 7.8 -management as above (3) Atrial fibrillation: Atrial fibrillation -Newly observed on this admission -heart rate is controlled, beta mena as per cardiology -02/18/19 will hold AM metoprolol for now if there is cardiac cath. otherwise will plan on metoprolol 12.5 mg BID as per prior cardiology recommendations (4) Lung nodule: suspected lung nodule ruled out -Single view CXR: Questionable 9 mm nodule within the right upper lobe. This could be due to overlapping ribs. Follow-up nonemergent PA and lateral views the chest or nonemergent chest CT are recommended for further evaluation. However on follow up XR chest 2V routine: The lungs appear clear. No nodule identified within the right upper lobe on repeat imaging. The heart is normal in size. No pleural effusions. No pneumothorax. Poststernotomy changes are again noted (5) CKD (chronic kidney disease), stage III: -Monitor renal function (6) HTN (hypertension): -hold blood pressure medications because patient's blood pressure was noted to be low on 02/18/19 AM -02/19/19 blood pressure controlled (7) GERD (gastroesophageal reflux disease): -Continue H2 mena (8) BPH (benign prostatic hyperplasia): -hold tamsulosin for now DVT Prophylaxis -On Heparin IV Full Code son Emigdio ([phone]) Subjective Patient seen at bedside with son and patient's son translating as per patient's preference. Patient reports he has not had chest discomfort before yesterday lunch time. Patient denies chest pain currently. no shortness of breath. no abdomen pain. no vomiting. Continues to be on telemetry monitoring On secured entrance monitor patient continues to have atrial fibrillation. Patient and son expresses some concern that if cardiology service elects to do cardiac cath that access of right femoral may be avoided if possible because of history of cardiac caths in the past to the area of right groin and patient has concerns about cysts in the area. On exam, by hospitalist patient's groin areas appear symmetric and no palpable masses Physical Exam Constitutional: comfortable Eyes: PERRL, conjunctivae normal, anicteric sclerae EOM intact bilaterally ENMT: external ear and nose normal, oropharynx normal Neck: normal visual inspection Respiratory: normal respiratory effort, lungs clear to auscultation Cardiovascular: RRR, no murmur, no edema Gastrointestinal (Abdomen): normal bowel sounds, soft, nontender, no hepatosplenomegaly Musculoskeletal: Head/Neck/Chest: normocephalic and head atraumatic Neurologic: PERRL, EOMI, accommodation nl, no face palsy, no dysarthria CN's II-XI intact bilaterally Psychiatric: A+Ox3, euthymic affect Genitourinary: no testicular masses, no penis abnormality Results & Data Vital Signs (Past 12 Hours) Vital Signs Temp Pulse Pulse Resp BP BP Pulse Ox 02/19/19 07:25 36.6 C 72 18 116/73 97 02/19/19 03:15 36.6 C 70 18 127/75 99 02/19/19 01:00 89 02/18/19 23:00 36.7 C 85 20 113/59 L 98 (1) Atrial fibrillation Atrial fibrillation type: unspecified Qualified Code(s): I48.91 - Unspecified atrial fibrillation (2) Chest pain Chest pain type: unspecified Qualified Code(s): R07.9 - Chest pain, unspecified
[2019-02-19] MEDS: ASPIRIN 81 MG ECTAB PO SCH (09:31)
[2019-02-19] MEDS: ATORVASTATIN 40 MG TAB PO SCH (09:31)
[2019-02-19] MEDS: METOPROLOL SUCC 25MG EXT REL TAB PO SCH ×2 (10:45→21:25)
[2019-02-19] MEDS ORDERED: MIDAZOLAM HCL 1 MG/ML 2ML VIAL ONE (12:10)
[2019-02-19] MEDS ORDERED: fentaNYL citrate 100 MCG/2 ML VIAL ONE (12:10)
--- NOTE | 2019-02-19 13:24 | Pre Anesthesia Assessment ---
Date of Service February 19, 2019 Pre Sedation Assessment Vital Signs Temp Pulse Pulse Pulse Resp BP BP 02/19/19 12:02 36.6 C 67 18 142/91 H 02/19/19 07:25 36.6 C 72 18 116/73 02/19/19 03:15 36.6 C 70 18 127/75 02/19/19 01:00 89 02/18/19 23:00 36.7 C 85 20 113/59 L 02/18/19 19:09 36.6 C 69 18 108/66 02/18/19 16:00 76 02/18/19 15:22 36.5 C 69 16 99/59 L Pulse Ox 02/19/19 12:02 96 02/19/19 07:25 97 02/19/19 03:15 99 02/19/19 01:00 02/18/19 23:00 98 02/18/19 19:09 98 02/18/19 16:00 02/18/19 15:22 98 Cardiovascular + irregularly irregular + S1 normal and + S2 normal + femoral pulses present; no JVD and no femoral bruit Respiratory normal respiratory effort, lungs clear to auscultation Pre-Sedation Airway Assessment Smoking Status: Never smoker Mallampati Class: III ASA: ASA2 NPO Status Date of Last Intake of Fluids: 02/18/19 Time of Last Intake of Fluids: 10:30 Last Oral Intake of Fluids Comment: sips with meds Date of Last Intake of Solid Food: 02/18/19 Procedure Planning Contraindications for Sedation: none Current Medications Reviewed: Yes Notes The planned sedation has been discussed with the patient. Informed Consent was obtained. I have identified the patient, determined the appropriateness of sedation and have assessed the patient immediately prior to the procedure. All medicine(s) and interventions are by my order.
[2019-02-19] MEDS ORDERED: ACETAMINOPHEN 325 MG TAB PO PRN (13:32)
--- NOTE | 2019-02-19 13:37 | Cardiac Catheterization ---
Cardiac Cath Procedure: Brief Procedure Date February 19, 2019 Pre-Procedure Diagnosis Pre-Procedure Diagnosis: Non STEMI AUC Score AUC Score: 7 Post-Procedure Diagnosis Post-Procedure Diagnosis: Severe CAD (Severe kaibab vessel disease with patent grafts) Procedure(s) Performed Procedure(s) Performed: Coronary Angiography and Left Heart Cath Yarn Mercerizer Operator Helper Lj Bee MD Estimated Blood Loss Estimated Blood Loss: <15cc Medication(s) Medication(s): Lidocaine 1% (Local infiltration access site) and Versed (1 mg IV) Preliminary Findings Right dominant coronary anatomy Severe kaibab vessel disease with 100% occlusion mid left anterior descending, proximal circumflex and proximal right coronary artery with distal runoff vessels extremely thin in caliber Left main: Modest in caliber and calcified with 30% distal taper Left anterior descending: Type II distribution giving rise to a modest caliber diagonal branch in its proximal third. The left anterior descending is 100% occluded after the diagonal branch. The proximal left understanding has a patent stent with narrowing of the distal and the stent of 50 to 60% extending into the origin of the small diagonal branch narrowing it by 60%. Vessel caliber is extremely small. The distal vessel fills via patent VAZQUEZ graft antegrade flow demonstrated moderate caliber left understanding reaching to the apex with moderate irregularities and no obstruction VAZQUEZ graft to the LAD: No compromising flow or narrowings Ramus intermedius this is a very small caliber vessel with moderate ir regularities at its origin Left circumflex modest in caliber and not dominant. He is occluded 100% shortly after its origin. There is faint collateral filling its AV groove portion. The obtuse marginal was seen filling via patent saphenous vein graft demonstrating of trifurcating small caliber vessel without focal disease. Saphenous vein graft to the left circumflex obtuse marginal patent with tortuous coursing slightly reduced flow but no obstruction Right coronary artery: Dominant distribution and diffusely diseased. Gives rise to a conus branch shortly after its origin and a small right ventricular branch in its proximal third. The right coronary artery has a 99% stenosis after the conus branch followed by a 100% occlusion after the right ventricular branch. The distal vessel fills via patent saphenous vein graft to the posterior descending artery. The distal right coronary demonstrates a long posterior descending artery very thin in caliber and 2 small posterior ventricular branches. The right coronary fills retrograde to its midportion with highly diseased distal portion prior to vein graft anastomosis and AV groove. LV angiography not performed Left ventricular end-diastolic pressure 7 Final impression: Severe kaibab vessel disease with 100% occlusion all 3 vessel with thin caliber vessels and distal runoff Patent grafts and proximal left anterior descending stenting Recommendations medical management emphasizing rate control Recommendations Recommendations: Medical Therapy and/or Counseling Specimens Specimens: None Fluids (cc crystalloids) Fluids (cc crystalloids): 80 Anesthesia Start time: 1241, stop time: 1317 Procedural Complication(s) None Disposition PCU
--- NOTE | 2019-02-19 14:02 | Cardiac Catheterization ---
Cardiac Cath Procedure Full Procedure Date February 19, 2019 Pre-Procedure Diagnosis Pre-Procedure Diagnosis: Non STEMI AUC Score AUC Score: 7 Post-Procedure Diagnosis Post-Procedure Diagnosis: Severe CAD (Severe [place] vessel disease with patent grafts) Procedure(s) Performed Procedure(s) Performed: Coronary Angiography and Left Heart Cath City Carrier Assistant Lj Bee MD Admin Asst(s) Melinda Baptiste Estimated Blood Loss Estimated Blood Loss: <15cc Medication(s) Medication(s): Lidocaine 1% (Local infiltration access site) and Versed (1 mg IV) Summary of Findings Right dominant coronary anatomy Severe [place] vessel disease with 100% occlusion mid left anterior descending, proximal circumflex and proximal right coronary artery with distal runoff vessels extremely thin in caliber Left main: Modest in caliber and calcified with 30% distal taper Left anterior descending: Type II distribution giving rise to a modest caliber diagonal branch in its proximal third. The left anterior descending is 100% occluded after the diagonal branch. The proximal left understanding has a patent stent with narrowing of the distal and the stent of 50 to 60% extending into the origin of the small diagonal branch narrowing it by 60%. Vessel caliber is extremely small. The distal vessel fills via patent VAZQUEZ graft antegrade flow demonstrated moderate caliber left understanding reaching to the apex with moderate irregularities and no obstruction VAZQUEZ graft to the LAD: No compromising flow or narrowings Ramus intermedius this is a very small caliber vessel with moderate irregularities at its origin Left circumflex modest in caliber and not dominant. He is occluded 100% shortly after its origin. There is faint collateral filling its AV groove portion. The obtuse marginal was seen filling via patent saphenous vein graft demonstrating of trifurcating small caliber vessel without focal disease. Saphenous vein graft to the left circumflex obtuse marginal patent with tortuous coursing slightly reduced flow but no obstruction Right coronary artery: Dominant distribution and diffusely diseased. Gives rise to a conus branch shortly after its origin and a small right ventricular branch in its proximal third. The right coronary artery has a 99% stenosis after the conus branch followed by a 100% occlusion after the right ventricular branch. The distal vessel fills via patent saphenous vein graft to the posterior descending artery. The distal right coronary demonstrates a long posterior descending artery very thin in caliber and 2 small posterior ventricular branches. The right coronary fills retrograde to its midportion with highly diseased distal portion prior to vein graft anastomosis and AV groove. LV angiography not performed Left ventricular end-diastolic pressure 7 Final impression: Severe n[place] vessel disease with 100% occlusion all 3 vessel with thin caliber vessels and distal runoff Patent grafts and proximal left anterior descending stenting Recommendations medical management emphasizing rate control Hemodynamics Rest Ao:: 120/64/87 Final Ao: 129/56/86 LV: 123/2/7 Recommendations Recommendations: Medical Therapy and/or Counseling Specimens Specimens: None Radiation Exposure (mGy) 1417 Contrast (mls) 133 Fluids (cc crystalloids) Fluids (cc crystalloids): 80 Anesthesia Start time: 1241, stop time: 1317 Procedural Complication(s) None Disposition PCU ACC 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 Newly observed atrial fibrillation with controlled ventricular response rate was present CAD Presenation: Non STEMI Anginal Classification: CCS IV Heart Failure: No Cardiogenic Shock within 24 Hours: No Cardiac Arrest within 24 Hours: No Imaging Studies Past 6 Months: Yes Stress Studies Past 6 Months: No Standard Exercise Test: No Stress Echocardiogram: No Stress Testing w/SPECT MPI: No Cardiac CTA: No STEMI OR Non-STEMI Symptom Onset Date: 02/16/19 Thrombolytics: No Coronary Anatomy Dominant: Right Left Main (% Stenosis): Distal (30) LAD (% Stenosis): Proximal (50) and Mid (100) D1 (% Stenosis): Proximal (60) Circumflex (% Stenosis): Proximal (100) OM1 (% Stenosis): Normal RCA (% Stenosis): Proximal (99% followed by 100%) R PDA (% Stenosis): Mid (Long 50 with thin caliber and diffuse disease) R PL1 (% Stenosis): Normal R PL2 (% Stenosis): Normal Ramus (% Stenosis): Proximal (40) Grafts - LAD (%): Normal Grafts - Circumflex (%): Normal Grafts - RCA (%): Normal Diagnostic Physicians Name: Lj Bee MD Status: Urgent Closure Device Percutaneous Entry Location: Femoral Closure Device: None-Manual Hold Recommendations: Medical Therapy and/or Counseling
--- NOTE | 2019-02-19 14:10 | Cardiology Progress Note ---
Date of Service February 19, 2019 Assessment & Plan (1) Non-ST elevated myocardial infarction: Cardiac catheterization performed today after discussion with patient and his son and informed consent obtained. Study demonstrated patent grafts including VAZQUEZ graft to LAD, saphenous vein graft to an obtuse marginal and saphenous vein graft to the right coronary artery. There is severe [place] vessel disease with 100% occlusion of all 3 ho-chunk vessels and severe diffuse disease distal runoff with vessels being very thin in caliber. Suspicious that atrial fibrillation with increased ventricular response rate exceeded coronary anatomy his ability to respond to rate even as rates are only minimally elevate Plan continue medical therapy increase Toprol to 25 mg twice per day, restart SATURNINO inhibitor in a.m. (2) Atrial fibrillation: Newly observed that may have precipitated anginal event. Will warrant long-term anticoagulation, give first dose of warfarin this evening (3) History of coronary artery bypass graft: (4) History of cardiac cath: (5) HTN (hypertension): (6) HLD (hyperlipidemia): Subjective Patient seen and examined no further chest pain since yesterday. Troponins have peaked and declining. No acute ST segment changes on EKG. Patient remains in atrial fibrillation with variable heart rate response Records reviewed from [facility]. Diagnostic cardiac cathete rization and coronary intervention performed in 2009 with patent grafts noted. Stent was placed in the proximal left anterior descending prior to a diagonal branch with severe ho-chunk vessel disease observed. Cardiac catheterization performed via right femoral access. Intervention staged performed via right radial access Physical Exam Constitutional: WD/WN, vitals as above Eyes: PERRL, conjunctivae normal, anicteric sclerae ENMT: Mallampati Class: III Neck: trachea midline, no thyromegaly Respiratory: normal respiratory effort, lungs clear to auscultation Cardiovascular: Rate/Rhythm: + irregularly irregular Heart Sounds: normal S1, normal S2 and + murmur (Grade 1/6 systolic murmur, faint. No diastolic murmur); no gallop Palpation: normal PMI Vessels: normal carotid upstroke, femoral pulses present and radial pulses present; no JVD, no carotid bruit and no femoral bruit Extremities: no edema Gastrointestinal (Abdomen): normal bowel sounds, soft, nontender, no hepatosplenomegaly Musculoskeletal: no cyanosis or clubbing, extremities motor strength 5/5 Skin: no rashes, warm and dry Neurologic: PERRL, EOMI, accommodation nl, no face palsy, no dysarthria Psychiatric: A+Ox3, euthymic affect Results & Data Vital Signs (Past 12 Hours) Vital Signs Temp Pulse Pulse Resp BP BP Pulse Ox 02/19/19 14:00 87 16 117/59 L 99 02/19/19 13:45 87 16 125/60 99 02/19/19 13:30 84 16 128/65 99 02/19/19 12:02 36.6 C 67 18 142/91 H 96 02/19/19 07:25 36.6 C 72 18 116/73 97 02/19/19 03:15 36.6 C 70 18 127/75 99 Laboratory Results Laboratory Results - last 24 hr 02/18/19 02/18/19 02/19/19 18:13 18:13 01:23 WBC RBC Hgb Hct MCV MCH MCHC RDW Std Deviation RDW Coeff of Cassidy Plt Count MPV Immature Gran % (Auto) Neut % (Auto) Lymph % (Auto) [place] % (Auto) Eos % (Auto) Baso % (Auto) Immature Gran # (Auto) Neut # (Auto) Lymph # (Auto) [place] # (Auto) Eos # (Auto) Baso # (Auto) APTT 74.6 H* 64.5 H* PTT Ratio 2.8 2.4 Activ Coag Time Kaolin Sodium Potassium Chloride Carbon Dioxide Anion Gap BUN Creatinine Est Cr Clr Drug Dosing Est GFR ( Amer) Est GFR (Non-Af Amer) BUN/Creatinine Ratio Glucose Calcium Magnesium Total Bilirubin AST ALT Alkaline Phosphatase Troponin I 5.600 H* Total Protein Albumin Globulin Albumin/Globulin Ratio 02/19/19 02/19/19 02/19/19 06:50 06:50 06:50 WBC 5.97 RBC 4.28 L Hgb 12.7 L Hct 38.2 L MCV 89.3 MCH 29.7 MCHC 33.2 RDW Std Deviation 43.5 RDW Coeff of Cassidy 13.4 Plt Count 140 MPV 12.0 H Immature Gran % (Auto) 0.0 Neut % (Auto) 56.0 Lymph % (Auto) 30.5 [place] % (Auto) 8.5 Eos % (Auto) 4.5 Baso % (Auto) 0.5 Immature Gran # (Auto) 0.00 Neut # (Auto) 3.34 Lymph # (Auto) 1.82 [place]ye # (Auto) 0.51 Eos # (Auto) 0.27 Baso # (Auto) 0.03 APTT 64.1 H* PTT Ratio 2.4 Activ Coag Time Kaolin Sodium 142 Potassium 3.9 Chloride 110 H Carbon Dioxide 26 Anion Gap 5.0 BUN 17 Creatinine 1.17 Est Cr Clr Drug Dosing 46.3 Est GFR ( Amer) 67.4 Est GFR (Non-Af Amer) 58.1 BUN/Creatinine Ratio 14.4 Glucose 107 H Calcium 8.9 Magnesium 2.2 Total Bilirubin 0.6 AST 31 ALT 21 Alkaline Phosphatase 69 Troponin I 2.790 H* Total Protein 6.9 Albumin 3.2 L Globulin 3.7 Albumin/Globulin Ratio 0.9 02/19/19 13:18 WBC RBC Hgb Hct MCV MCH MCHC RDW Std Deviation RDW Coeff of Cassidy Plt Count MPV Immature Gran % (Auto) Neut % (Auto) Lymph % (Auto) [place] % (Auto) Eos % (Auto) Baso % (Auto) Immature Gran # (Auto) Neut # (Auto) Lymph # (Auto) [place]ye # (Auto) Eos # (Auto) Baso # (Auto) APTT PTT Ratio Activ Coag Time Kaolin 169 H Sodium Potassium Chloride Carbon Dioxide Anion Gap BUN Creatinine Est Cr Clr Drug Dosing Est GFR ( Amer) Est GFR (Non-Af Amer) BUN/Creatinine Ratio Glucose Calcium Magnesium Total Bilirubin AST ALT Alkaline Phosphatase Troponin I Total Protein Albumin Globulin Albumin/Globulin Ratio (1) Atrial fibrillation Atrial fibrillation type: unspecified Qualified Code(s): I48.91 - Unspecified atrial fibrillation
[2019-02-19] MEDS ORDERED: WARFARIN SOD 5 MG TAB PO ONE (18:35)
[2019-02-20] MEDS: SODIUM CHLORIDE 0.9% 1000ML 1,000 ML IV SCH (05:17)
[2019-02-20 05:52] LABS: Hematocrit (blood only) 35.1 % (42-52); Hemoglobin 12.1 g/dL (14.0-18.0); Mean Corpuscular Hgb Conc 34.5 g/dL (32-36); Mean Corpuscular Volume 89.8 fL (80-100); Platelet Count 125 K/uL (130-400); RDW Coefficient of Variation 13.6 % (11.5-14.5); RDW Standard Deviation 44.3 fL (36.4-46.3); Red Blood Count 3.91 M/uL (4.7-6.1); White Blood Count 5.77 K/uL (4.8-10.8)
[2019-02-20 06:04] LABS: INR 1.1 (0.9-1.1); Prothrombin Time 11.2 Seconds (9.0-12.0)
[2019-02-20 06:17] LABS: Albumin Level 2.8 gm/dl (3.4-5.0); BUN Creatinine Ratio 11.6 (10-20); Basophils # (auto) 0.01 K/uL (0-0.2); Basophils % (auto) 0.2 %; Calcium 7.9 mg/dl (8.5-10.1); Creatinine Clr Calc Pharmacy 48.8 ml/min; Echinocytes 1+; Eosinophils # (auto) 0.25 K/uL (0-0.5); Eosinophils % (auto) 4.3 %; Est GFR (African American) 71.8; Est GFR (Non-African American) 61.9; Immature Granulocytes # (auto) 0.01 K/uL (0.00-0.02); Immature Granulocytes % (auto) 0.2 %; Lymphocytes # (auto) 1.85 K/uL (1.2-3.4); Lymphocytes % (auto) 32.1 %; Magnesium 2.1 mg/dl (1.8-2.4); Monocytes # (auto) 0.59 K/uL (0.11-0.59); Monocytes % (auto) 10.2 %; Neutrophils # (auto) 3.06 K/uL (1.4-6.5); Potassium 4.1 mmol/L (3.5-5.1)
[2019-02-20 06:19] LABS: Albumin Globulin Ratio 0.8 (0.9-2); Bilirubin,Total 0.5 mg/dl (0.2-1); Globulin 3.6 gm/dl (2.5-4.0); Total Protein 6.4 gm/dl (6.4-8.2)
[2019-02-20] MEDS: METOPROLOL SUCC 25MG EXT REL TAB PO SCH ×2 (07:59→21:46)
[2019-02-20] MEDS: ATORVASTATIN 40 MG TAB PO SCH (08:00)
[2019-02-20] MEDS: ASPIRIN 81 MG ECTAB PO SCH (08:00)
[2019-02-20] MEDS ORDERED: RAMIPRIL 10 MG PO SCH (09:00)
--- NOTE | 2019-02-20 11:19 | Hospitalist Progress Note ---
Date of Service February 20, 2019 Assessment & Plan (1) Chest pain: "Pt is 83 y/o M with PMH CAD s/p CABG in 2005, s/p KRISS to LAD in 2009, ischemic cardiomyopathy with EF: 30% in 2005 with echo in 2017 with EF: 55%, HTN, HLD, GERD, CKD III presented to ER with complaint of slight chest pressure chest pain secondary to Non-ST elevated myocardial infarction -atherosclerotic coronary disease status post coronary bypass grafting 2005, VAZQUEZ graft to LAD, saphenous vein graft to obtuse marginal, saphenous vein graft to posterior descending artery for three-vessel disease following inferior myocardial infarction in 2009; Recurrent angina with subsequent coronary intervention [facility] receiving a drug-eluting stent to the proximal left anterior descending 2009 -on this admission, patient received nitro in the ED and started on heparin drip when initial troponin of 6 -Troponins on this admission margarita to 7.8 and peaked -02/18/19 EKG demonstrates no acute evolution -02/18/19 Echocardiogram demonstrates inferior posterior wall motion abnormality question more pronounced versus similar to prior studies preserved overall LV function. -as per cardiology service, monitor on IV heparin and switched carvedilol to metoprolol 12.5 BID to minimize hypotension starting 02/18/19 and patient signed released of medical information for previous cardiology records from [place] -02/19/19 cardiac catheterization: Study demonstrated patent grafts including VAZQUEZ graft to LAD, saphenous vein graft to an obtuse marginal and saphenous vein graft to the right coronary artery. There is severe [place] vessel disease with 100% occlusion of all 3 [place] vessels and severe diffuse disease distal runoff with vessels being very thin in caliber. -02/20/19 updates: IV fluids after the 02/19/19 cardiac cath have been stopped, patient to get IV Lasix 20 mg IV x 1 dose. as per discussion with cardiology Dr. Bee patient to continue metoprolol 25 mg BID, isosorbide dinitrate BID being started on 02/20/[address] Bee would like patient to remain in the hospital to monitor blood pressure while on nitrates, patient received home ramipril 10 mg on AM of 02/19/19 however will transition to lower dose lisinopril 2.5 mg daily starting on 02/20/19, continue warfarin 5 mg daily which was started initially after cardiac cath on 02/19/19, monitor INR (2) Elevated troponin: -troponins downtrending after peak of 7.8 -management as above (3) Atrial fibrillation: Atrial fibrillation -Newly observed on this admission -heart rate is controlled -beta mena as per cardiology (4) Lung nodule: suspected lung nodule ruled out -Single view CXR: Questionable 9 mm nodule within the right upper lobe. This could be due to overlapping ribs. Follow-up nonemergent PA and lateral views the chest or nonemergent chest CT are recommended for further evaluation. However on follow up XR chest 2V routine: The lungs appear clear. No nodule identified within the right upper lobe on repeat imaging. The heart is normal in size. No pleural effusions. No pneumothorax. Poststernotomy changes are again noted (5) CKD (chronic kidney disease), stage III: -Monitor renal function (6) HTN (hypertension): -monitor in case of hypotension while cardiac medications being adjusted during this hospital stay (7) GERD (gastroesophageal reflux disease): -Continue H2 mena (8) BPH (benign prostatic hyperplasia): -hold tamsulosin for now DVT Prophylaxis -coumadin 5 mg daily started on 02/19/19 after cardiac cath Full Code son Emigdio ([phone]) Subjective Patient seen at bedside with son and patient's son Emigdio ([phone]) translating as per patient's preference. The patient denies chest pain. no shortness of breath. breathing on room air. no pain of the right groin cardiac cath site. no vomiting. able to eat the food. no headache. no dizziness. continues to be in atrial fibrillation with heart rate controlled IV fluids after the 02/19/19 cardiac cath have been stopped, patient to get IV Lasix 20 mg IV x 1 dose. as per discussion with cardiology Dr. Bee patient to continue metoprolol 25 mg BID, isosorbide dinitrate BID being started on 02/20/[address] Bee would like patient to remain in the hospital to monitor blood pressure while on nitrates, patient received home ramipril 10 mg on AM of 02/19/19 however will transition to lower dose lisinopril 2.5 mg daily starting on 02/20/19, continue warfarin 5 mg daily which was started initially after cardiac cath on 02/19/19, monitor INR Patient and son updated about the plans Physical Exam Constitutional: comfortable Eyes: PERRL, conjunctivae normal, anicteric sclerae EOM intact bilaterally ENMT: external ear and nose normal, oropharynx normal Neck: normal visual inspection Respiratory: normal respiratory effort, lungs clear to auscultation Cardiovascular: Rate/Rhythm: regular rate and + irregularly irregular Gastrointestinal (Abdomen): normal bowel sounds, soft, nontender, no hepatosplenomegaly Musculoskeletal: Head/Neck/Chest: normocephalic and head atraumatic Neurologic: PERRL, EOMI, accommodation nl, no face palsy, no dysarthria CN's II-XI intact bilaterally Psychiatric: A+Ox3, euthymic affect Genitourinary: no testicular masses, no penis abnormality Results & Data Vital Signs (Past 12 Hours) Vital Signs Temp Pulse Pulse Resp BP BP Pulse Ox 02/20/19 07:52 36.8 C 80 18 115/69 96 02/20/19 06:21 75 02/20/19 04:00 36.5 C 80 18 110/54 L 99 02/20/19 00:32 37.1 C 89 17 111/67 98 02/20/19 00:01 66 (1) Atrial fibrillation Atrial fibrillation type: unspecified Qualified Code(s): I48.91 - Unspecified atrial fibrillation (2) Chest pain Chest pain type: unspecified Qualified Code(s): R07.9 - Chest pain, unspecified
[2019-02-20] MEDS ORDERED: FUROSEMIDE 20 MG in SYRINGE 0 ML IV ONE (11:30)
--- NOTE | 2019-02-20 11:43 | Cardiology Progress Note ---
Date of Service February 20, 2019 Assessment & Plan (1) Non-ST elevated myocardial infarction: Cardiac catheterization performed today after discussion with patient and his son and informed consent obtained. Study demonstrated patent grafts including VAZQUEZ graft to LAD, saphenous vein graft to an obtuse marginal and saphenous vein graft to the right coronary artery. There is severe [place] vessel disease with 100% occlusion of all 3 [place] vessels and severe diffuse disease distal runoff with vessels being very thin in caliber. Suspicious that atrial fibrillation with increased ventricular response rate exceeded coronary anatomy his ability to respond to rate even as rates are only minimally elevate Plan continue medical therapy increase Toprol to 25 mg twice per day, received dose of ramipril today. Will change to lisinopril in a.m. at lower dosing. Begin oral nitrates low-dose (2) Atrial fibrillation: Newly observed that may have precipitated anginal event. Will warrant long-term anticoagulation, warfarin begun (3) History of coronary artery bypass graft: (4) History of cardiac cath: (5) HTN (hypertension): (6) HLD (hyperlipidemia): Subjective No chest pains, no complaints overnight. Tolerated diagnostic cardiac catheterization well yesterday. Hemodynamically stable. Physical Exam Constitutional: WD/WN, vitals as above Eyes: PERRL, conjunctivae normal, anicteric sclerae ENMT: Mallampati Class: III Neck: trachea midline, no thyromegaly Respiratory: normal respiratory effort, lungs clear to auscultation Cardiovascular: Rate/Rhythm: + irregularly irregular Heart Sounds: normal S1, normal S2 and + murmur (Grade 1/6 systolic murmur, faint. No diastolic murmur); no gallop Palpation: normal PMI Vessels: normal carotid upstroke, femoral pulses present and radial pulses present; no JVD, no carotid bruit and no femoral bruit Extremities: no edema Gastrointestinal (Abdomen): normal bowel sounds, soft, nontender, no hepatosplenomegaly Musculoskeletal: no cyanosis or clubbing, extremities motor strength 5/5 Skin: no rashes, warm and dry Neurologic: PERRL, EOMI, accommodation nl, no face palsy, no dysarthria Psychiatric: A+Ox3, euthymic affect Results & Data Vital Signs (Past 12 Hours) Vital Signs Temp Pulse Pulse Resp BP BP Pulse Ox 02/20/19 07:52 36.8 C 80 18 115/69 96 02/20/19 06:21 75 02/20/19 04:00 36.5 C 80 18 110/54 L 99 02/20/19 00:32 37.1 C 89 17 111/67 98 02/20/19 00:01 66 Laboratory Results Laboratory Results - last 24 hr 02/19/19 02/20/19 02/20/19 13:18 05:29 05:29 WBC 5.77 RBC 3.91 L Hgb 12.1 L Hct 35.1 L MCV 89.8 MCH 30.9 MCHC 34.5 RDW Std Deviation 44.3 RDW Coeff of Cassidy 13.6 Plt Count 125 L MPV 12.0 H Immature Gran % (Auto) 0.2 Neut % (Auto) 53.0 Lymph % (Auto) 32.1 [place] % (Auto) 10.2 Eos % (Auto) 4.3 Baso % (Auto) 0.2 Immature Gran # (Auto) 0.01 Neut # (Auto) 3.06 Lymph # (Auto) 1.85 [place] # (Auto) 0.59 Eos # (Auto) 0.25 Baso # (Auto) 0.01 Echinocytes 1+ PT 11.2 INR 1.1 Activ Coag Time Kaolin 169 H Sodium Potassium Chloride Carbon Dioxide Anion Gap BUN Creatinine Est Cr Clr Drug Dosing Est GFR ( Amer) Est GFR (Non-Af Amer) BUN/Creatinine Ratio Glucose Calcium Magnesium Total Bilirubin AST ALT Alkaline Phosphatase Total Protein Albumin Globulin Albumin/Globulin Ratio 02/20/19 05:29 WBC RBC Hgb Hct MCV MCH MCHC RDW Std Deviation RDW Coeff of Cassidy Plt Count MPV Immature Gran % (Auto) Neut % (Auto) Lymph % (Auto) [place] % (Auto) Eos % (Auto) Baso % (Auto) Immature Gran # (Auto) Neut # (Auto) Lymph # (Auto) [place] # (Auto) Eos # (Auto) Baso # (Auto) Echinocytes PT INR Activ Coag Time Kaolin Sodium 140 Potassium 4.1 Chloride 110 H Carbon Dioxide 26 Anion Gap 4.0 BUN 13 Creatinine 1.11 Est Cr Clr Drug Dosing 48.8 Est GFR ( Amer) 71.8 Est GFR (Non-Af Amer) 61.9 BUN/Creatinine Ratio 11.6 Glucose 97 Calcium 7.9 L Magnesium 2.1 Total Bilirubin 0.5 AST 22 ALT 18 Alkaline Phosphatase 62 Total Protein 6.4 Albumin 2.8 L Globulin 3.6 Albumin/Globulin Ratio 0.8 L (1) Atrial fibrillation Atrial fibrillation type: unspecified Qualified Code(s): I48.91 - Unspecified atrial fibrillation
[2019-02-20] MEDS: ISOSORBIDE DINITRATE 10 MG TAB PO SCH ×2 (11:58→16:00)
[2019-02-20] MEDS ORDERED: WARFARIN SOD 5 MG TAB PO SCH (16:00)
[2019-02-21] MEDS: METOPROLOL SUCC 25MG EXT REL TAB PO SCH (08:30)
[2019-02-21] MEDS: ISOSORBIDE DINITRATE 10 MG TAB PO SCH ×2 (08:30→11:34)
[2019-02-21] MEDS: ATORVASTATIN 40 MG TAB PO SCH (08:30)
[2019-02-21] MEDS: ASPIRIN 81 MG ECTAB PO SCH (08:31)
[2019-02-21] MEDS ORDERED: LISINOPRIL 2.5 MG TAB PO SCH (09:00)
--- NOTE | 2019-02-21 12:21 | Cardiology Progress Note ---
Date of Service February 21, 2019 Assessment & Plan (1) Non-ST elevated myocardial infarction: Cardiac catheterization performed after discussion with patient and his son and informed consent obtained. Study demonstrated patent grafts including VAZQUEZ graft to LAD, saphenous vein graft to an obtuse marginal and saphenous vein graft to the right coronary artery. There is severe solomon vessel disease with 100% occlusion of all 3 solomon vessels and severe diffuse disease distal runoff with vessels being very thin in caliber. Suspicious that atrial fibrillation with increased ventricular response rate exceeded coronary anatomy his ability to respond to rate even as rates are only minimally elevate Plan continue medical therapy increase Toprol to 25 mg twice per day, ramipril switch to lisinopril 2.5 mg/day addition of low-dose nitrates 10 mg twice per day Isordil May resume tamsulosin on discharge Follow-up with cardiology 2 to 3 [address] previously patient Dr. Khan (2) Atrial fibrillation: Newly observed that may have precipitated anginal event. Will warrant long-term anticoagulation, warfarin begun coag clinic follow-up requested (3) History of coronary artery bypass graft: (4) History of cardiac cath: (5) HTN (hypertension): (6) HLD (hyperlipidemia): Subjective No chest pains, no complaints overnight. Physical Exam Constitutional: WD/WN, vitals as above Eyes: PERRL, conjunctivae normal, anicteric sclerae ENMT: Mallampati Class: III Neck: trachea midline, no thyromegaly Respiratory: normal respiratory effort, lungs clear to auscultation Cardiovascular: Rate/Rhythm: + irregularly irregular Heart Sounds: normal S1, normal S2 and + murmur (Grade 1/6 systolic murmur, faint. No diastolic murmur); no gallop Palpation: normal PMI Vessels: normal carotid upstroke, femoral pulses present and radial pulses present; no JVD, no carotid bruit and no femoral bruit Extremities: no edema Right femoral access site without bruit or hematoma Gastrointestinal (Abdomen): normal bowel sounds, soft, nontender, no hepatosplenomegaly Musculoskeletal: no cyanosis or clubbing, extremities motor strength 5/5 Skin: no rashes, warm and dry Neurologic: PERRL, EOMI, accommodation nl, no face palsy, no dysarthria Psychiatric: A+Ox3, euthymic affect Results & Data Vital Signs (Past 12 Hours) Vital Signs Temp Pulse Pulse Resp BP Pulse Ox 02/21/19 10:53 36.5 C 77 18 100/62 98 02/21/19 07:22 36.8 C 83 18 127/74 98 02/21/19 06:19 83 02/21/19 03:45 37.0 C 87 18 118/72 98 (1) Atrial fibrillation Atrial fibrillation type: unspecified Qualified Code(s): I48.91 - Unspecified atrial fibrillation
--- NOTE | 2019-02-21 14:08 | Hospitalist Progress Note ---
Date of Service February 21, 2019 Assessment & Plan (1) Non-ST elevated myocardial infarction: History of coronary artery disease, status post CABG and subsequent PCI of LAD. Presented to ED with chest pain. Initial troponin was 0.372 and margarita as high as 7.830. EKG at time of admission demonstrated atrial fibrillation with a ventricular rate of 58/minute, baseline artifact, T wave flattening in leads I and aVL, no acute ST changes. Received aspirin, IV heparin, nitroglycerin, carvedilol, enalapril, atorvastatin. Cardiology consulted. Echocardiogram 02/18 showed moderate concentric LVH, hypokinesis of inferior and inferoseptal parry, overall LVEF 50-55%, borderline left atrial enlargement, aortic valve sclerosis without hemodynamically significant valvular stenosis, moderate mitral regurgitation, trace tricuspid regurgitation, no Doppler evidence of pulmonary hypertension. Cardiac catheterization performed by Dr. Bee on 02/19 and demonstrated multivessel [place] disease, patent grafts, patent stent. Cardiovascular medications were titrated. Calculated LDL 54. Discharge on aspirin 81 mg daily, metoprolol succinate 25 mg twice daily, lisinopril 2.5 mg daily, isosorbide dinitrate 10 mg twice daily, atorvastatin 40 mg daily. (2) CAD (coronary artery disease): As discussed above. (3) Ischemic cardiomyopathy: Echo demonstrated hypokinesis of inferior and inferoseptal parry, overall LVEF 5 0-55%. No clinical or radiographic evidence of CHF. Cardiovascular medications titrated. Discharged on metoprolol succinate and lisinopril. (4) Atrial fibrillation: Newly diagnosed atrial fibrillation at time of presentation. Potassium, magnesium, TSH normal. Echocardiogram showed borderline enlarged left atrium. Discharged on metoprolol succinate for rate control and warfarin. Ongoing warfarin management per [facility]. (5) HTN (hypertension): Discharge on cardiovascular medications as noted above. (6) GERD (gastroesophageal reflux disease): Continue ranitidine. (7) HLD (hyperlipidemia): Calculated LDL 54. Continue atorvastatin. (8) Abnormal chest xray: Portable chest x-ray in Emergency Department demonstrated questionable 9 mm nodule within the right upper lobe. Repeat imaging obtained with PA and lateral views; no nodules were seen. (9) Discharge planning issues: Discharge to home. Internal Medicine follow-up with Dr. Anita Rodriguez. Cardiology follow-up with Dr. Khan. Subjective Feels well. No chest pain or SOB. Ready to go home. Physical Exam Constitutional: no acute distress Respiratory: no respiratory distress Auscultation: lungs clear to auscultation bilaterally Cardiovascular: Rate/Rhythm: regular rate and + irregularly irregular Heart Sounds: no gallop and no cardiac rub Vessels: no JVD Extremities: no calf tenderness and no edema Gastrointestinal (Abdomen): normal bowel sounds, soft, nontender, no hepatosplenomegaly Musculoskeletal: cath site right groin without hematoma Skin: no rashes, warm and dry Psychiatric: Orientation: alert and oriented x 3 Results & Data Vital Signs (Past 12 Hours) Vital Signs Temp Pulse Pulse Resp BP Pulse Ox 02/21/19 10:53 36.5 C 77 18 100/62 98 02/21/19 07:22 36.8 C 83 18 127/74 98 02/21/19 06:19 83 02/21/19 03:45 37.0 C 87 18 118/72 98 (1) Atrial fibrillation Atrial fibrillation type: unspecified Qualified Code(s): I48.91 - Unspecified atrial fibrillation
--- NOTE | 2019-02-22 09:23 | Discharge Summary ---
Date of Service Date of Admission: 02/17/19 Date of Discharge: 02/21/19 Admission HPI Per Admitting Provider Pt is 83 y/o M with PMH CAD s/p CABG in 2005, s/p KRISS to LAD in 2009, ischemic cardiomyopathy, HTN, HLD, GERD, CKD III, BPH presented to ER with complaint of chest pain. History obtained through patient's son as patient does not speak [place]. Denies life care planner services and wants son to interpret. Reported around midnight last night started with slight anterior chest pressure. States approximately 1 PM today chest pressure increased and rated a 8 out of 10 on pain scale with associated shortness of breath and diaphoresis and dizziness with standing. This evening in ER patient reporting chest pain 4 out of 10 on pain scale and reports feels like gas currently. According to records pt had EF: 30% in 2005 at the time of his CABG. 2017 echo: EF: 55-59%. Denies any current shortness of breath or dizziness. Denies any nausea or vomiting, fever/chills, diarrhea, constipation, BHATIA, syncope, vision changes, neck pain, orthopnea, palpitations, cough, sore throat, choking, otalgia, rhinorrhea, abdominal pain, paresthesias, weakness, extremity weakness, extremity edema, rashes, urinary symptoms, melena, hematochezia, epistaxis. Principal Diagnosis non-ST elevation myocardial infarction OTHER NEW / ACUTE DIAGNOSES: atrial fibrillation, new onset Discharge Data Allergies Allergy/AdvReac Type Severity Reaction Status Date / Time No Known Allergies Allergy Unverified 02/17/19 18:32 Consultations 02/17/19 19:05 ED Decision to Admit Stat 02/17/19 22:09 Consult Cardiology Routine Consult Case Management - Discharge Planning Routine Procedures Performed Operation Date: 02/19/19 12:00 Actual Procedures s Cineradiography w/Routine Exam - Lj Bee MD p Cath, Left w/Cors Vent Grafts - Lj Bee MD Ordered Studies 02/19/19 12:10 CL Cath Imgs for PACS use only Routine Hospital Course (1) Non-ST elevated myocardial infarction: History of coronary artery disease, status post CABG and subsequent PCI of LAD. Presented to ED with chest pain. Initial troponin was 0.372 and margarita as high as 7.830. EKG at time of admission demonstrated atrial fibrillation with a ventricular rate of 58/minute, baseline artifact, T wave flattening in leads I and aVL, no acute ST changes. Received aspirin, IV heparin, nitroglycerin, carvedilol, enalapril, atorvastatin. Cardiology consulted. Echocardiogram 02/18 showed moderate concentric LVH, hypokinesis of inferior and inferoseptal parry, overall LVEF 50-55%, borderline left atrial enlargement, aortic valve sclerosis without hemodynamically significant valvular stenosis, moderate mitral regurgitation, trace tricuspid regurgitation, no Doppler evidence of pulmonary hypertension. Cardiac catheterization performed by Dr. Bee on 02/19 and demonstrated multivessel [place] disease, patent grafts, patent stent. Cardiovascular medications were titrated. Calculated LDL 54. Discharged on aspirin 81 mg daily, metoprolol succinate 25 mg twice daily, lisinopril 2.5 mg daily, isosorbide dinitrate 10 mg twice daily, atorvastatin 40 mg daily. (2) CAD (coronary artery disease): As discussed above. (3) Ischemic cardiomyopathy: Echo demonstrated hypokinesis of inferior and inferoseptal parry, overall LVEF 50-55%. No clinical or radiographic evidence of CHF. Cardiovascular medications titrated. Discharged on metoprolol succinate and lisinopril. (4) Atrial fibrillation: Newly diagnosed atrial fibrillation at time of presentation. Potassium, magnesium, TSH normal. Echocardiogram showed borderline enlarged left atrium. Discharged on metoprolol succinate for rate control and warfarin. Ongoing warfarin management per [facility]. (5) HTN (hypertension): Discharged on cardiovascular medications as noted above. (6) GERD (gastroesophageal reflux disease): Continue ranitidine. (7) HLD (hyperlipidemia): Calculated LDL 54. Continue atorvastatin. (8) Abnormal chest xray: Portable chest x-ray in Emergency Department demonstrated questionable 9 mm nodule within the right upper lobe. Repeat imaging obtained with PA and lateral views; no nodules were seen. (9) Discharge planning issues: Discharged to home. Internal Medicine follow-up with Dr. Anita Rodriguez. Cardiology follow-up with Dr. Khan. Total Time Total Time Spent Total Time Spent (In Minutes): 40 Discharge Plan Discharge Items Patient Disposition: Home - Self-Care Reason For Visit: chest pain Discharge Diagnosis: myocardial infarction (heart attack, relatively small) atrial fibrillation (irregular heart rhythm) Condition: Good Discharge Goals: Decrease discomfort and Improve disease control Activity: As commented below Activity Comment: light activity until seen for follow-up in Cardiology Clinic Non-emergency contact: Primary Care Provider, Hospitalist and Police Communications Operator Call non-emergency contact if: you have any medication questions and your symptoms worsen Follow-up/Referrals: Da Khan DO [Police Communications Operator] - (Office will contact you with follow-up appointment.) Anita Rodriguez MD [Family Provider] - (02/26/2019 1:00 PM Anita Rodriguez MD) PCP,NO [Primary Care Provider] - Diet: Heart Healthy Addtl Provider Instructions: MEDICATION CHANGES: NEW MEDICATIONS: isosorbide dinitrate (Isordil and other brands) treats heart disease and high blood pressure lisinopril (Prinivil or Zestril) 2.5 mg daily treats heart disease and high blood pressure metoprolol succinate (Toprol XL) 25 mg twice a day treats heart coronary disease, atrial fibrillation, and high blood pressure warfarin (Coumadin) 5 mg daily helps prevent strokes STOP: carvedilol (Coreg) being replaced with metoprolol succinate (Toprol XL) ramipril (Altace) being replaced with lisinopril SUMMARY OF TEST RESULTS: Blood tests and echocardiogram indicated that you had a heart attack, but relatively small. Heart catheterization showed that bypass vessels and stent are open. LDL cholesterol was 108. First chest x-ray in Emergency Department showed a possible small spot in your lung. However, repeat x-ray with extra views did not show any spots. PENDING TEST RESULTS: none RECOMMENDATIONS FOR FOLLOW-UP: [facility] will contact regarding follow-up for managing warfarin (Coumadin). OTHER INSTRUCTIONS: Seek medical attention if you have: * temperature above 101 * chest pain or trouble breathing * abdominal pain, nausea, vomiting * diarrhea, dark stools or bloody stools * blood in urine * any unanswered questions or concerns Call 911 if symptoms are severe. Please take good care of yourself. Call if you have any questions or problems. You can reach a [facility] hospitalist on duty at [facility] 24 hours a day by calling [phone]. My cell # is [phone]. Prescriptions: New metoprolol succinate 25 mg tablet extended release 24 hr 25 mg PO BID Qty: 60 RF: 1 lisinopril 2.5 mg tablet 2.5 mg PO DAILY Qty: 30 RF: 1 warfarin 5 mg tablet 5 mg PO DAILY Qty: 30 RF: 1 isosorbide dinitrate 10 mg tablet 10 mg PO BID Qty: 60 RF: 1 Continued atorvastatin 40 mg tablet 40 mg PO DAILY RF: 0 aspirin 81 mg tablet,delayed release (DR/EC) 81 mg PO DAILY RF: 0 ranitidine HCl 150 mg tablet 150 mg PO BID RF: 0 tamsulosin 0.4 mg capsule 0.4 mg PO DAILY Qty: 0 RF: 0 Discontinued carvedilol 25 mg tablet 25 mg PO BID RF: 0 ramipril 10 mg capsule 10 mg PO DAILY RF: 0 Stand-Alone Forms: [employer] [facility] [place]Other Patient Handouts: Isosorbide Dinitrate Oral tablet, Lisinopril Oral tablet, Coumadin Discharge Orders: Discharge Order (Routine); Ordered 02/21/19 Ordered By: Javier Walker Admission Data Admit Date/Time: 02/17/19 20:27 Attending Provider: Javier Walker Admit Provider: Jesus Manuel Patel Primary Care Provider: PCP,NO Other Providers: Lj Bee ; Domincik Cid ; Jesus Manuel Medina Service: Telemetry Medical Other Interventions: Discharge Summary Assessment (RN) Last Done: 02/21/19 14:11 DC Date/Time DO NOT enter until pt leaves facility: 02/21/19 15:07
== END 2019-02-21 15:07 | disposition home or self-care (01) | DRG 281 ==
LOC: ED 17:51 → SUATTDRO 20:27 → 2W 20:27 → 2S 02-19 12:46

== ENCOUNTER 2020-08-02 19:03 | Inpatient (IN) ==
[2020-08-02 19:27] LABS: Basophils # (auto) 0.01 K/uL (0-0.2); Basophils % (auto) 0.2 %; Eosinophils # (auto) 0.26 K/uL (0-0.5); Hematocrit (blood only) 35.6 % (42-52); Lymphocytes # (auto) 1.23 K/uL (1.2-3.4); Lymphocytes % (auto) 23.6 %; Mean Corpuscular Hemoglobin 30.5 pg (25-34); Mean Corpuscular Hgb Conc 33.7 g/dL (32-36); Mean Corpuscular Volume 90.6 fL (80-100); Monocytes # (auto) 0.59 K/uL (0.11-0.59); Monocytes % (auto) 11.3 %; Neutrophils # (auto) 3.12 K/uL (1.4-6.5); Neutrophils % (auto) 59.9 %; Platelet Count 187 K/uL (130-400); RDW Coefficient of Variation 14.8 % (11.5-14.5); RDW Standard Deviation 49.6 fL (36.4-46.3); Red Blood Count 3.93 M/uL (4.7-6.1); White Blood Count 5.21 K/uL (4.8-10.8)
[2020-08-02] MEDS ORDERED: SODIUM CHLORIDE 0.9% 1000ML 2,000 ML IV ONE (19:33)
[2020-08-02] MEDS ORDERED: CEFEPIME 2,000 MG/20 ML VIAL IV STA (19:37)
--- NOTE | 2020-08-02 19:37 | Emergency Department Note ---
Impression & Plan Fever, Tachycardia, Weakness, Diarrhea ED Provider Note NAME: DARWIN EASTON AGE: 85 SEX: M : 1935 ARRIVES VIA: Ambulance INFORMANT: Patient, son ED PROVIDER(S): Guilherme Nesbitt DO CHIEF COMPLAINT: Dizzy HPI: Patient is an 85-year-old male who presents the ER for dizziness. His symptoms started earlier today. He was praying and went to get up and felt like everything was moving. He feels very weak in the legs. He denies any cough or runny nose. No sore throat. Admits to a mild headache. No neck pain. He does have some lower abdominal pain. Admits to some burning with urination but does not think he has any now. Denies any urgency or frequency. No exposure to anyone with known Covid. No other exacerbating or remitting factors. Does admit to diarrhea which has been present for quite some time but he has noticed blood recently. ROS: See above HPI for pertinent positives & negatives. A total of 10 systems reviewed and were otherwise negative. PAST MEDICAL HISTORY:See Below PAST SURGICAL HISTORY:See Below FAMILY HISTORY:See Below SOCIAL HISTORY:See Below HOME MEDICATIONS:See Below ALLERGIES:See Below VITALS:See Below PHYSICAL EXAMINATION: GENERAL: Sitting up in bed, alert, well appearing, well nourished, no distress, non-toxic EYE EXAM: normal conjunctiva. OROPHARYNX: no exudate, no erythema, lips, buccal mucosa, and tongue normal and mucous membranes are moist NECK: supple, no nuchal rigidity, no adenopathy, non-tender LUNGS: Clear to auscultation. Normal chest wall mechanics HEART: no murmurs, S1 normal and S2 normal ABDOMEN: abdomen soft, non-tender, normo-active bowel sounds, no masses, no rebound or guarding. UPPER EXTREMITIES: upper extremities are grossly normal. LOWER EXTREMITIES: No pitting edema. NEURO EXAM: Normal sensorium, cranial nerves II-XII intact, normal speech, no weakness of arms, no weakness of legs. No drift.Gross sensation intact. MEDICAL DECISION MAKING: Patient is an 85-year-old male who presents the ER for dizziness and weakness in the bilateral legs associated with a near syncopal episode. Upon arrival he is found to be febrile and tachycardic. Temp was 38.3. IV was established blood work was obtained. Labs show no significant leukocytosis but mild anemia. INR was subtherapeutic at 1.5. BMP with LFTs bilirubin was unremarkable. Lactic acid was normal. Troponin was negative. Pro-Sree was negative. UA was clean. Covid influenza and RSV was negative. CT abdomen pelvis showed no acute pathology CT head was unremarkable. Patient was given IV fluids, Tylenol and cefepime. He was updated bedside. Did discuss possible meningitis although they note he has a very mild headache and no neck pain. With the elevated INR will not tap at this time. Also has diarrhea in combination with some blood. Question if this is infectious diarrhea. Discussed with hospitalist for further evaluation. Triage Nursing notes reviewed. Prior medical records reviewed Vital Signs: reviewed and remarkable for tachy and febrile Differential diagnosis: Differential diagnosis includes etiologies such as sepsis, UTI, pneumonia, metabolic, electrolyte abnormalities, cardiac sources, intracerebral event, toxicologic, neurological, as well as others were entertained. ER treatment provided: See below Diagnostics interpreted by me: ECG: EKG with a poor baseline A. fib rate 85 Left axis No PVCs QTC 399 Extremely difficult to interpret Laboratory studies: As stated above and show below. Imaging studies: CT head and abdomen pelvis showed no acute pathology per stat read Consultation(s): Discussed with Dr. silva approved for further evaluation ED COURSE: Procedures: none Critical Care: None Past Med/Surg History Medical History (Updated 08/02/20 @ 22:40 by Guilherme Nebsitt DO) BPH (benign prostatic hyperplasia) CAD (coronary artery disease) CKD (chronic kidney disease), stage III GERD (gastroesophageal reflux disease) HLD (hyperlipidemia) HTN (hypertension) Ischemic cardiomyopathy Surgical History History of cardiac cath 2010: KRISS to LAD at [facility] in [place] History of coronary artery bypass graft 2006: CABG X 3 in [place] Stented coronary artery Family History Sister Cancer Social History Smoking Status: Never smoker Hx Alcohol Use: No Hx Substance Use: No Preferred Language: Rory Communication Ability: Effective Strategy Consultant Required: Yes Beliefs That Will Affect Care: None Current Living Situation: Family Feels Safe at Home: Yes Assistive Devices: None Allergies Allergies Allergy/AdvReac Type Severity Reaction Status Date / Time No Known Allergies Allergy Verified 08/02/20 20:24 Home Meds Home Medications Medication Instructions Recorded Confirmed atorvastatin 40 mg PO DAILY 02/17/19 08/02/20 famotidine 20 mg PO DAILY 08/02/20 08/02/20 isosorbide mononitrate 15 mg PO DAILY 08/02/20 08/02/20 prochlorperazine maleate 5 mg PO DIRECTED PRN 08/02/20 08/02/20 [Compazine] Previous Rx's Medication Instructions Recorded metoprolol succinate 25 mg PO BID #60 tab 02/21/19 tamsulosin 0.4 mg PO DAILY #0 cap 02/21/19 warfarin 5 mg PO DAILY #30 tab 02/21/19 Results & Data (ED) Vital Signs Vital Signs - 24 hr 08/02/20 19:09 08/02/20 19:19 08/02/20 20:44 Temperature 38.3 C H Temperature Source Oral Pulse Rate 105 H Pulse Rate [Right Finger] 86 Pulse Rhythm Regular Pulse Strength Normal Respiratory Rate 12 24 Respiratory Effort / Characteristics Non-Labored Non-Labored Spontaneous Non-Labored Respiratory Depth Normal Respiratory Pattern Regular Blood Pressure 134/80 Blood Pressure [Right Arm] 132/76 Blood Pressure Mean 98 Blood Pressure Mean [Right Arm] 94 Blood Pressure Position Lying Pulse Oximetry 100 100 98 Oxygen Delivery Method Room Air Room Air Room Air Sepsis Recent Fever Within 48 Hours Yes Sepsis New/Unexplained Change in Mental Status N/A Sepsis Action Taken by Nursing No Action Required 08/02/20 21:00 08/02/20 22:26 Temperature Temperature Source Pulse Rate Pulse Rate [Right Finger] 85 Pulse Rhythm Pulse Strength Respiratory Rate 18 16 Respiratory Effort / Characteristics Non-Labored Spontaneous Respiratory Depth Respiratory Pattern Blood Pressure Blood Pressure [Right Arm] 126/73 Blood Pressure Mean Blood Pressure Mean [Right Arm] 90 Blood Pressure Position Pulse Oximetry 99 98 Oxygen Delivery Method Room Air Sepsis Recent Fever Within 48 Hours Sepsis New/Unexplained Change in Mental Status Sepsis Action Taken by Nursing Laboratory Data Result diagrams: 08/02/20 19:15 08/02/20 20:10 Lab Results 08/02/20 08/02/20 08/02/20 Range/Units 19:15 19:15 19:15 WBC 5.21 (4.8-10.8) K/uL RBC 3.93 L (4.7-6.1) M/uL Hgb 12.0 L (14.0-18.0) g/dL Hct 35.6 L (42-52) % MCV 90.6 (80-100) fL MCH 30.5 (25-34) pg MCHC 33.7 (32-36) g/dL RDW Std Deviation 49.6 H (36.4-46.3) fL RDW Coeff of Cassidy 14.8 H (11.5-14.5) % Plt Count 187 (130-400) K/uL MPV 11.0 H (7.4-10.4) fL Immature Gran % (Auto) 0.0 % Neut % (Auto) 59.9 % Lymph % (Auto) 23.6 % [place] % (Auto) 11.3 % Eos % (Auto) 5.0 % Baso % (Auto) 0.2 % Neut # (Auto) 3.12 (1.4-6.5) K/uL Lymph # (Auto) 1.23 (1.2-3.4) K/uL [place] # (Auto) 0.59 (0.11-0.59) K/uL Eos # (Auto) 0.26 (0-0.5) K/uL Baso # (Auto) 0.01 (0-0.2) K/uL Immature Gran # (Auto) 0.00 (0.00-0.02) K/uL PT 15.7 H (9.0-12.0) Seconds INR 1.5 H (0.9-1.1) APTT 31.2 H (21.0-31.0) Seconds PTT Ratio 1.1 Sodium 137 (136-145) mmol/L Potassium (3.5-5.1) mmol/L Chloride 107 (98-107) mmol/L Carbon Dioxide 26 (21-32) mmol/L Anion Gap 4.0 (3-11) BUN 14 (7-18) mg/dl Creatinine 1.12 (0.6-1.4) mg/dl Est Cr Clr Drug Dosing 48.3 ml/min Est GFR ( Amer) 70.0 Est GFR (Non-Af Amer) 60.4 BUN/Creatinine Ratio 12.1 (10-20) Glucose 95 (70-99) mg/dl Lactate (0.4-2.0) mmol/L Calcium 8.4 L (8.5-10.1) mg/dl Magnesium (1.8-2.4) mg/dl Total Bilirubin 0.8 (0.2-1) mg/dl AST (15-37) U/L ALT 17 (12-78) U/L Alkaline Phosphatase 81 (45-117) U/L Troponin I < 0.015 (0-0.045) ng/ml Total Protein 7.2 (6.4-8.2) gm/dl Albumin 2.9 L (3.4-5.0) gm/dl Globulin 4.3 H (2.5-4.0) gm/dl Albumin/Globulin Ratio 0.7 L (0.9-2) Procalcitonin (0-0.5) ng/ml Urine Color Urine Appearance (Clear) Urine pH (4.5-7.5) Ur Specific [place] (1.000-1.030) Urine Protein (Negative) Urine Glucose (UA) (Negative) Urine Ketones (Negative) Urine Blood (Negative) Urine Nitrite (Negative) Urine Bilirubin (Negative) Urine Urobilinogen (Negative) Ur Leukocyte Esterase (Negative) Urine WBC (Auto) (0-5) /hpf Urine RBC (Auto) (0-4) /hpf U Hyaline Cast (Auto) (0-5) /lpf U Epithel Cells (Auto) (0-5) /lpf Urine Bacteria (Auto) (Negative) COVID-19 Eval Order SARS-CoV-2 (PCR) (Negative) Influenza Type A (PCR) (Neg) Influenza Type B (PCR) (Neg) RSV (RT-PCR) (Neg) 08/02/20 08/02/20 08/02/20 Range/Units 19:15 19:54 19:54 WBC (4.8-10.8) K/uL RBC (4.7-6.1) M/uL Hgb (14.0-18.0) g/dL Hct (42-52) % MCV (80-100) fL MCH (25-34) pg MCHC (32-36) g/dL RDW Std Deviation (36.4-46.3) fL RDW Coeff of Cassidy (11.5-14.5) % Plt Count (130-400) K/uL MPV (7.4-10.4) fL Immature Gran % (Auto) % Neut % (Auto) % Lymph % (Auto) % [place] % (Auto) % Eos % (Auto) % Baso % (Auto) % Neut # (Auto) (1.4-6.5) K/uL Lymph # (Auto) (1.2-3.4) K/uL [place] # (Auto) (0.11-0.59) K/uL Eos # (Auto) (0-0.5) K/uL Baso # (Auto) (0-0.2) K/uL Immature Gran # (Auto) (0.00-0.02) K/uL PT (9.0-12.0) Seconds INR (0.9-1.1) APTT (21.0-31.0) Seconds PTT Ratio Sodium (136-145) mmol/L Potassium (3.5-5.1) mmol/L Chloride (98-107) mmol/L Carbon Dioxide (21-32) mmol/L Anion Gap (3-11) BUN (7-18) mg/dl Creatinine (0.6-1.4) mg/dl Est Cr Clr Drug Dosing ml/min Est GFR ( Amer) Est GFR (Non-Af Amer) BUN/Creatinine Ratio (10-20) Glucose (70-99) mg/dl Lactate 0.9 (0.4-2.0) mmol/L Calcium (8.5-10.1) mg/dl Magnesium (1.8-2.4) mg/dl Total Bilirubin (0.2-1) mg/dl AST (15-37) U/L ALT (12-78) U/L Alkaline Phosphatase (45-117) U/L Troponin I (0-0.045) ng/ml Total Protein (6.4-8.2) gm/dl Albumin (3.4-5.0) gm/dl Globulin (2.5-4.0) gm/dl Albumin/Globulin Ratio (0.9-2) Procalcitonin 0.07 (0-0.5) ng/ml Urine Color Urine Appearance (Clear) Urine pH (4.5-7.5) Ur Specific [place] (1.000-1.030) Urine Protein (Negative) Urine Glucose (UA) (Negative) Urine Ketones (Negative) Urine Blood (Negative) Urine Nitrite (Negative) Urine Bilirubin (Negative) Urine Urobilinogen (Negative) Ur Leukocyte Esterase (Negative) Urine WBC (Auto) (0-5) /hpf Urine RBC (Auto) (0-4) /hpf U Hyaline Cast (Auto) (0-5) /lpf U Epithel Cells (Auto) (0-5) /lpf Urine Bacteria (Auto) (Negative) COVID-19 Eval Order CovFluRsv at [facility] SARS-CoV-2 (PCR) (Negative) Influenza Type A (PCR) (Neg) Influenza Type B (PCR) (Neg) RSV (RT-PCR) (Neg) 08/02/20 08/02/20 08/02/20 Range/Units 19:54 19:54 20:10 WBC (4.8-10.8) K/uL RBC (4.7-6.1) M/uL Hgb (14.0-18.0) g/dL Hct (42-52) % MCV (80-100) fL MCH (25-34) pg MCHC (32-36) g/dL RDW Std Deviation (36.4-46.3) fL RDW Coeff of Cassidy (11.5-14.5) % Plt Count (130-400) K/uL MPV (7.4-10.4) fL Immature Gran % (Auto) % Neut % (Auto) % Lymph % (Auto) % [place] % (Auto) % Eos % (Auto) % Baso % (Auto) % Neut # (Auto) (1.4-6.5) K/uL Lymph # (Auto) (1.2-3.4) K/uL [place] # (Auto) (0.11-0.59) K/uL Eos # (Auto) (0-0.5) K/uL Baso # (Auto) (0-0.2) K/uL Immature Gran # (Auto) (0.00-0.02) K/uL PT (9.0-12.0) Seconds INR (0.9-1.1) APTT (21.0-31.0) Seconds PTT Ratio Sodium (136-145) mmol/L Potassium 3.8 (3.5-5.1) mmol/L Chloride (98-107) mmol/L Carbon Dioxide (21-32) mmol/L Anion Gap (3-11) BUN (7-18) mg/dl Creatinine (0.6-1.4) mg/dl Est Cr Clr Drug Dosing ml/min Est GFR ( Amer) Est GFR (Non-Af Amer) BUN/Creatinine Ratio (10-20) Glucose (70-99) mg/dl Lactate (0.4-2.0) mmol/L Calcium (8.5-10.1) mg/dl Magnesium 1.9 (1.8-2.4) mg/dl Total Bilirubin (0.2-1) mg/dl AST 18 (15-37) U/L ALT (12-78) U/L Alkaline Phosphatase (45-117) U/L Troponin I (0-0.045) ng/ml Total Protein (6.4-8.2) gm/dl Albumin (3.4-5.0) gm/dl Globulin (2.5-4.0) gm/dl Albumin/Globulin Ratio (0.9-2) Procalcitonin (0-0.5) ng/ml Urine Color Yellow Urine Appearance Cloudy A (Clear) Urine pH 8.0 H (4.5-7.5) Ur Specific [place] 1.016 (1.000-1.030) Urine Protein Negative (Negative) Urine Glucose (UA) Negative (Negative) Urine Ketones Negative (Negative) Urine Blood Negative (Negative) Urine Nitrite Negative (Negative) Urine Bilirubin Negative (Negative) Urine Urobilinogen Negative (Negative) Ur Leukocyte Esterase Negative (Negative) Urine WBC (Auto) 1-5 (0-5) /hpf Urine RBC (Auto) 5-10 H (0-4) /hpf U Hyaline Cast (Auto) 1-5 (0-5) /lpf U Epithel Cells (Auto) 10-20 H (0-5) /lpf Urine Bacteria (Auto) Negative (Negative) COVID-19 Eval Order SARS-CoV-2 (PCR) NEGATIVE (Negative) Influenza Type A (PCR) Negative (Neg) Influenza Type B (PCR) Negative (Neg) RSV (RT-PCR) Negative (Neg) Administered Medications Discontinued Medications Acetaminophen (Acetaminophen 325 Mg Tab) 650 mg PO NOW STA Stop: 08/02/20 20:43 Last Admin: 08/02/20 20:48 Dose: 650 mg Documented by: [id number] Sodium Chloride (Nss 1000ml) 2,000 mls @ 999 mls/hr IV .Q2H1M ONE Stop: 08/02/20 21:33 Last Infusion: 08/02/20 21:44 Dose: 0 mls/hr Documented by: [id number] Admin: 08/02/20 20:00 Dose: 999 mls/hr Documented by: [id number] Cefepime HCl (Maxipime) 2,000 mg in 20 mls @ 5 mls/min IV NOW STA; Protocol Stop: 08/02/20 19:40 Last Admin: 08/02/20 20:45 Dose: 5 mls/min Documented by: [id number] Ioversol (Ioversol 100ml) 93 ml IV ONCE ONE Stop: 08/02/20 20:20 Last Admin: 08/02/20 20:21 Dose: 93 ml Documented by: [id number] Discharge Plan Visit Data Chief Complaint: Syncope (Near Syncope) Stated Complaint: NEAR SYNCOPE ED Provider: Guilherme Nesbitt Discharge Problem: Fever, Tachycardia, Weakness, Diarrhea Forms Stand Alone Forms: [facility] Prescriptions Prescriptions: No Action atorvastatin 40 mg tablet 40 mg PO DAILY RF: 0 metoprolol succinate 25 mg tablet extended release 24 hr 25 mg PO BID Qty: 60 RF: 1 warfarin 5 mg tablet 5 mg PO DAILY Qty: 30 RF: 1 tamsulosin 0.4 mg capsule 0.4 mg PO DAILY Qty: 0 RF: 0 isosorbide mononitrate 30 mg tablet extended release 24 hr 15 mg PO DAILY RF: 0 famotidine 20 mg tablet 20 mg PO DAILY RF: 0 prochlorperazine maleate [Compazine] 5 mg Tablet 5 mg PO DIRECTED PRN (Reason: Nausea And Vomiting) RF: 0 Discharge Problem: Fever Qualifiers: Fever type: unspecified Qualified Code(s): R50.9 - Fever, unspecified Diarrhea Qualifiers: Diarrhea type: unspecified type Qualified Code(s): R19.7 - Diarrhea, unspecified
[2020-08-02 19:39] LABS: INR 1.5 (0.9-1.1); Partial Thromboplastin Ratio 1.1; Partial Thromboplastin Time 31.2 Seconds (21.0-31.0); Prothrombin Time 15.7 Seconds (9.0-12.0)
--- NOTE | 2020-08-02 19:47 | XRay Report ---
XR chest 1V portable HISTORY: 85 years-old Male SEPSIS acute sepsis COMPARISON: Chest radiographs 02/17/2019 TECHNIQUE: Portable AP view of the chest FINDINGS: Cardiac silhouette is mildly enlarged. Prior median sternotomy with CABG. Chronic interstitial coarse donya. There is no pneumothorax, pleural effusion, airspace consolidation or overt pulmonary edema. De generative changes of the shoulders and spine. IMPRESSION: Cardiomegaly with chronic interstitial coarsening. ACT 112: Negative or not required by law. The above report was generated using voice recognition software. It may contain grammatical, syntax o r spelling errors. Electronically signed by: Du Leal M.D. 08/02/2020 7:46 PM
[2020-08-02 19:49] LABS: Alanine Aminotransferase 17 U/L (12-78); Albumin Level 2.9 gm/dl (3.4-5.0); BUN Creatinine Ratio 12.1 (10-20); Blood Urea Nitrogen 14 mg/dl (7-18); Calcium 8.4 mg/dl (8.5-10.1); Carbon Dioxide 26 mmol/L (21-32); Chloride 107 mmol/L (98-107); Creatinine Clr Calc Pharmacy 48.3 ml/min; Est GFR (Non-African American) 60.4; Glucose 95 mg/dl (70-99); Sodium 137 mmol/L (136-145)
[2020-08-02 20:03] LABS: Albumin Globulin Ratio 0.7 (0.9-2); Alkaline Phosphatase 81 U/L (45-117); Bilirubin,Total 0.8 mg/dl (0.2-1); Globulin 4.3 gm/dl (2.5-4.0); Total Protein 7.2 gm/dl (6.4-8.2); Troponin I < 0.015 ng/ml (0-0.045)
[2020-08-02 20:08] LABS: Appearance Urine Cloudy (Clear); Bacteria Urine Automated Negative (Negative); Bilirubin Urine Negative (Negative); Blood Urine Negative (Negative); Color Urine Yellow; Glucose Urine UA Negative (Negative); Ketones Urine Negative (Negative); Leukocyte Esterase Urine Negative (Negative); Nitrite Urine Negative (Negative); Protein Urine Negative (Negative); Specific Gravity Urine 1.016 (1.000-1.030); Urobilinogen Urine Negative (Negative)
[2020-08-02] MEDS ORDERED: IOVERSOL 100ml IV ONE (20:19)
[2020-08-02 20:33] LABS: Potassium 3.8 mmol/L (3.5-5.1)
[2020-08-02 20:38] LABS: Magnesium 1.9 mg/dl (1.8-2.4)
[2020-08-02] MEDS ORDERED: ACETAMINOPHEN 325 MG TAB PO STA (20:42)
[2020-08-02 20:48] LABS: Influenza A virus by PCR Negative (Neg); Influenza B virus by PCR Negative (Neg); RSV by PCR Negative (Neg); SARS CoV2 RNA(COVID-19) InHosp NEGATIVE (Negative)
[2020-08-02] MEDS ORDERED: NITROGLYCERIN SL 0.4 MG/TAB TAB SL PRN (23:57)
[2020-08-02] MEDS ORDERED: WARFARIN SOD 5 MG TAB PO ONE (23:57)
[2020-08-02] MEDS ORDERED: ONDANSETRON INJ 2 MG/ML 2 ML VIAL IV PRN (23:57)
--- NOTE | 2020-08-03 00:11 | History and Physical Report ---
DATE OF ADMISSION: 08/02/2020 CHIEF COMPLAINT: Near syncope. HISTORY OF PRESENT ILLNESS: This is an 85-year-old male with past medical history significant for CAD status post CABG, atrial fibrillation, ischemic cardiomyopathy, hyperlipidemia, GERD, chronic kidney disease stage III, who was brought in from the house because of near syncope. The patient was having prayer in the evening when he felt dizzy. Later again when he was trying to go to bathroom, he almost passed out, so he was brought into the hospital. In the ER, he had mild temp spike. Otherwise, his labs were okay. Chest x-ray and CT of the head and CT of the abdomen and pelvis, preliminary report unremarkable. The patient is currently resting comfortably and hemodynamically stable. The patient denies any cough. No chest pain, no shortness of breath, no nausea, no vomiting. He is having chronic diarrhea ongoing for several months, but the last 1-2 months he is having some blood in the stools, he is supposed to get colonoscopy done on 08/12/2020. Previously, he was found to have a small polyp. Denies any abdominal pain. No nausea, no vomiting. Appetite is not that great chronically as per the son, and no loss of sense of smell or taste, no runny nose, no sore throat, no headache, no blurred vision, no earache. No exposure to any COVID patients. His COVID was negative in the ER. ALLERGIES: No known drug allergies. PAST MEDICAL HISTORY: As mentioned above. PAST SURGICAL HISTORY: Coronary bypass, cardiac stent. MEDICATIONS: The patient is on atorvastatin 40 mg p.o. daily, famotidine 20 mg p.o. daily, isosorbide mononitrate 50 mg p.o. daily, metoprolol succinate 25 mg p.o. b.i.d., Compazine 5 mg p.o. p.r.n., Flomax 0.4 mg p.o. daily, warfarin 5 mg p.o. daily. FAMILY HISTORY: Significant for no family history in file. SOCIAL HISTORY: . Currently, no smoking. No alcohol currently. No drug use. REVIEW OF SYSTEMS: As per HPI. Rest of the review of systems negative. PHYSICAL EXAMINATION: GENERAL: The patient is of moderate build, not in acute distress. VITAL SIGNS: Temperature 38.3, pulse 86, respiratory rate 18, blood pressure 132/76, oxygen 99% on room air. HEENT: Pupils equal, round, and reactive to light. Oral mucosa moist. NECK: No neck masses seen. Neck is supple. CARDIOVASCULAR: S1, S2 heard. Regular rate and rhythm. No murmur, no gallop. RESPIRATORY SYSTEM: Normal AP diameter. No accessory muscle use. No wheezing, no crackles. ABDOMEN: Soft, bowel sounds present. Mild lower abdominal discomfort. No guarding, no rigidity, no distention. CENTRAL NERVOUS SYSTEM: Cranial nerves II-XII grossly intact. Nonfocal. EXTREMITIES: No edema, no erythema. LABORATORY DATA: WBC 5.2, hemoglobin 12, hematocrit 35.6, platelets 187. PT 15.7, INR 1.5, APTT 31.2. Sodium 137, potassium 3.8, chloride 107, bicarbonate 26, BUN 14, creatinine 1.1, serum glucose 95. Lactate 0.9, calcium 8.4, magnesium 1.9, total bilirubin 0.8, AST 18, ALT 17, alkaline phosphatase 81. Troponin I less than 0.015. Procalcitonin 0.07. Urinalysis cloudy, but unremarkable. COVID-19 PCR negative. Influenza A and B negative. RSV negative. IMAGING DATA: CT of the head, preliminary report, chronic right parietal infarct, no acute findings seen. CT abdomen and pelvis, no acute findings. Chest x-ray, no acute findings. EKG: AFib with rate of 85, nonspecific changes, no significant change was found. ASSESSMENT AND PLAN: This is an 85-year-old male who presents with near syncope. 1. Near syncope: The patient also had episode of temp spike in the ER, but labs were unremarkable. UA is negative. Chest x-ray unremarkable. CT of the head and CT of the abdomen and pelvis unremarkable. Because of temp spike, he has some mild lower abdominal discomfort, he has a history of benign prostatic hypertrophy, could be urinary tract infection. ER started on cefepime. Will continue with Rocephin and also could be dehydration and we will check orthostatics. The patient is on gentle fluids. Monitor in the med/tele. Also get a CT of the chest to rule out any ongoing underlying pneumonia. Follow serial enzymes and close observation. If any concern, will get echo and cardiac consult. 2. History of coronary artery disease status post coronary artery bypass graft, history of cardiac stent. Continue his atorvastatin, Imdur, Toprol-XL. Monitor in the tele. 3. History of atrial fibrillation, rate controlled with Toprol-XL, on Coumadin. INR is 1.5. Will give Coumadin tonight and follow the PT/INR in the a.m. 4. Benign prostatic hypertrophy: Continue Flomax. 5. History of ischemic cardiomyopathy: Previous EF in 2005 was 30%, but EF in February 2019 was 55%. Getting fluids. Toprol-XL and Imdur. We will monitor for any volume overload. 6. Hypertension: On Toprol-XL and Imdur. Monitor the blood pressure. 7. Hyperlipidemia: On statin. 8. Deep venous thrombosis prophylaxis, on Coumadin. Monitor PT/INR. 9. Disposition: Observation in med tele. Expect to discharge home and follow with family doctor. Level 1 full code. MTDD
[2020-08-03] MEDS: SODIUM CHLORIDE 0.9% 1000ML 1,000 ML IV SCH ×2 (00:30→12:39)
[2020-08-03 05:37] LABS: Basophils # (auto) 0.01 K/uL (0-0.2); Basophils % (auto) 0.2 %; Eosinophils # (auto) 0.36 K/uL (0-0.5); Eosinophils % (auto) 6.4 %; Hematocrit (blood only) 35.8 % (42-52); Hemoglobin 11.7 g/dL (14.0-18.0); Immature Granulocytes # (auto) 0.01 K/uL (0.00-0.02); Immature Granulocytes % (auto) 0.2 %; Lymphocytes # (auto) 1.82 K/uL (1.2-3.4); Lymphocytes % (auto) 32.5 %; Mean Corpuscular Hemoglobin 29.8 pg (25-34); Mean Corpuscular Hgb Conc 32.7 g/dL (32-36); Mean Corpuscular Volume 91.3 fL (80-100); Mean Platelet Volume 10.5 fL (7.4-10.4); Monocytes # (auto) 0.74 K/uL (0.11-0.59); Monocytes % (auto) 13.2 %; Neutrophils # (auto) 2.66 K/uL (1.4-6.5); Neutrophils % (auto) 47.5 %; Platelet Count 140 K/uL (130-400); RDW Coefficient of Variation 15.1 % (11.5-14.5); RDW Standard Deviation 50.5 fL (36.4-46.3); Red Blood Count 3.92 M/uL (4.7-6.1)
[2020-08-03 05:46] LABS: INR 1.5 (0.9-1.1); Prothrombin Time 15.1 Seconds (9.0-12.0)
[2020-08-03 06:01] LABS: BUN Creatinine Ratio 11.6 (10-20); Calcium 8.5 mg/dl (8.5-10.1); Creatinine Clr Calc Pharmacy 52.6 ml/min; Est GFR (African American) 77.5; Est GFR (Non-African American) 66.9
[2020-08-03 06:06] LABS: Troponin I 0.02 ng/ml (0-0.045)
--- NOTE | 2020-08-03 07:14 | CT Scan Report ---
CT head/brain wo con CLINICAL HISTORY: Dizziness COMPARISON STUDY: No previous studies for comparison. TECHNIQUE: Axial CT of the brain is performed from the vertex to the skull base. IV contrast was not administered for this examination. A dose lowering technique was utilized adhering to the principles of ALARA. CT DOSE: 537.48 mGy.cm FINDINGS: No intra or extra-axial mass lesions are visualized. There is no CT evidence of acute cortical infarc tion. There is no evidence of midline shift. There is no acute hemorrhage. No calvarial fractures ar e visualized. There are patchy white matter hypodensities likely on a small vessel basis. There is an old right par ietal infarct. There is no evidence of pathologic ventricular dilatation. There is no evidence of acute sinusitis IMPRESSION: 1. Old right MCA distribution infarct. No acute intracranial findings. ACT 112: Negative or not required by law. Electronically signed by: Mras Sewell M.D. 08/03/2020 7:12 AM
--- NOTE | 2020-08-03 07:26 | CT Scan Report ---
CT abd pelvis IV con only CLINICAL HISTORY: Abdominal pain COMPARISON STUDY: None. TECHNIQUE: The patient was scanned in a dynamic helical fashion during intravenous administration of 93 cc of Optiray 320 A dose lowering technique was utilized adhering to the principles of ALARA. CT DOSE: 275.21 mGy.cm FINDINGS: Lower chest: There is respiratory motion artifact. There are basilar atelectatic changes. Liver: The contrast-enhanced liver is normal in size, contour, and attenuation. There is no intrahepa tic biliary ductal dilatation. The hepatic veins and portal veins are patent. Gallbladder: Difficult to visualize due to motion artifact. No definite calculi. Spleen: Normal in size and attenuation. Pancreas: Unremarkable. Adrenal glands: Unremarkable. Kidneys: There is symmetric renal cortical enhancement. The kidneys are normal in size without hydron ephrosis. Bowel: There are no transition zones to indicate bowel obstruction. There is no evidence of acute div erticulitis. There is no evidence of acute appendicitis. Peritoneum: There is no intraperitoneal free air or abdominal ascites. Vasculature: The abdominal aorta is normal in course and caliber. Adenopathy: None. Pelvic viscera: There is mild prostatomegaly Skeletal structures: No destructive osseous lesions are seen. IMPRESSION: 1. Motion degraded study 2. No acute abdominal or pelvic findings 2. No evidence of bowel obstruction. No evidence of free air 4. No evidence of acute appendicitis. No evidence of acute diverticulitis. ACT 112: Negative or not required by law. Electronically signed by: Mars Sewell M.D. 08/03/2020 7:24 AM
--- NOTE | 2020-08-03 07:46 | CT Scan Report ---
CT chest diagnostic wo con CT DOSE: 192.08 mGy.cm CLINICAL HISTORY: 85 years-old Male with pneumonia?. Acute shortness of breath with possible pneumon ia TECHNIQUE: Multiaxial CT images of the chest were performed without contrast. A dose lowering techni que was utilized adhering to the principles of ALARA. COMPARISON: CT abdomen and pelvis of same day FINDINGS: Unremarkable thyroid. Mildly enlarged mediastinal lymph nodes measure up to 10 mm. Cardiome gabby with prior median sternotomy and CABG. Extensive [place] coronary artery calcifications. No thora cic aortic aneurysm. No pneumothorax or pleural effusion. Bilateral intralobular septal thickening is noted with intermixed bibasilar right greater than left predominant groundglass densities. No lobar airspace consolidation, suspicious pulmonary nodule or mass. Mild bronchial wall thickening. Calcifie d granuloma of the medial segment right middle lobe. The central airways appear patent. No acute process of the imaged upper abdomen. There is mild generalized body wall edema. No acute fra cture. IMPRESSION: 1. Cardiomegaly with mild pulmonary edema. 2. Mild right greater than left groundglass opacities are suggestive of atelectasis versus pneumoniti s. 3. Mild mediastinal adenopathy, likely reactive. ACT 112: Negative or not required by law. Electronically signed by: Du Leal M.D. 08/03/2020 7:44 AM
[2020-08-03] MEDS: METOPROLOL SUCC 25MG EXT REL TAB PO SCH ×2 (08:16→21:00)
[2020-08-03] MEDS: ACETAMINOPHEN 325 MG TAB PO PRN ×2 (08:16→21:01)
[2020-08-03] MEDS: TAMSULOSIN HCL 0.4 MG CAP PO SCH (08:17)
[2020-08-03] MEDS: FAMOTIDINE 20 MG TAB PO SCH (08:17)
[2020-08-03] MEDS: ISOSORBIDE MONO EXTENDED REL 30 MG TABCR PO SCH (08:17)
[2020-08-03] MEDS: ATORVASTATIN 40 MG TAB PO SCH (08:18)
--- NOTE | 2020-08-03 08:26 | Hospitalist Progress Note ---
Date of Service August 03, 2020 Assessment & Plan (1) Diarrhea: ASSESSMENT AND PLAN: This is an 85-year-old male who presents with near syncope. 1. Near syncope: The patient also had episode of temp spike in the ER, but labs were unremarkable. UA is negative. Chest x-ray unremarkable. CT of the head and CT of the abdomen and pelvis unremarkable. Because of temp spike, he has some mild lower abdominal discomfort, he has a history of benign prostatic hypertrophy, could be urinary tract infection. ER started on cefepime. Will continue with Rocephin and also could be dehydration and we checked orthostatics which were negative. DC fluids sec to possible Pulm Edema on CTC. CT of the chest c/w mild Pulm edema/Atelectasis v Pneumonitis. Follow serial enzymes and close observation. 2. History of coronary artery disease status post coronary artery bypass graft, history of cardiac stent. Continue his atorvastatin, Imdur, Toprol-XL. Monitor in the tele. 3. History of atrial fibrillation, rate controlled with Toprol-XL, on Coumadin. INR is 1.5. Will give Coumadin tonight and follow the PT/INR in the a.m. 4. Benign prostatic hypertrophy: Continue Flomax. 5. History of ischemic cardiomyopathy: Previous EF in 2005 was 30%, but EF in February 2019 was 55%. Stop fluids. Toprol-XL and Imdur. We will monitor for any volume overload. 6. Hypertension: On Toprol-XL and Imdur. Monitor the blood pressure. 7. Hyperlipidemia: On statin. 8. Deep venous thrombosis prophylaxis, on Coumadin. Monitor PT/INR. 9. Disposition: Observation in med tele. Expect to discharge home and follow with family doctor. Level 1 full code. PT/OT I wonder if this is false negative COVID?? ID Eval Labs checked ROS-No Headache, No Visual Changes, No Nausea, No Vomiting, + Fever, + Chills, No Neck Pain or Stiffness, No Chest Pain, No Palpitations, No SOB, No ORDONEZ, No Cough, No Sputum, No Wheezing, No Abdominal Pain, + Diarrhea, No Hematemesis, No Hemoptysis, No Unexpected Weight Loss, No Flank pain, No Melena, No Hematochezia, No Frequency, No Urgency, No Burning, No Hematuria, No Rashes, No Diaphoresis. Appetite is Normal Physical Exam Gen-AAO x 3, NAD, febrile Head-NCAT, EOMI, PERRLA, Anicteric Sclera, No Posterior Pharyngeal Erythema Neck-Supple, No JVD, No Thyromegaly, No Masses, No LAD, No Bruits Lungs-Clear to Auscultation Bilaterally, No Rales, No Rhonchi, No Wheezing, No Crepitus Chest-No S4, +S1, +S2, No S3, No Murmurs, No Rubs, No Gallops, No Ectopy Abdomen-Soft, Bowel Sounds Present, Non Tender, Non Distended, No Hepatomegaly, No Splenomegaly, No Palpable Masses, No Rebound, No Rigidity, No Guarding Musculoskeletal-Full Range of Motion Bilaterally, No CVAT Extremities-No Cyanosis, No Clubbing, No Edema Nuero-Cranial Nerves II-XII grossly intact, Motor WNL, DTRs WNL, Strength WNL, Non Focal Psych-Normal Mood Admission and Anticipated Discharge Date Admission Date: August 02, 2020 Results & Data Results & Data ([facility]) Vital Signs (Past 12 Hours) Vital Signs Temp Pulse Pulse Resp BP Pulse Ox Pulse Ox 08/03/20 07:00 37.8 C H 93 H 20 160/89 H 99 08/03/20 03:34 37 C 76 18 130/64 97 08/02/20 23:57 37.1 C 70 80 18 137/66 99 99 08/02/20 22:26 85 16 126/73 98 08/02/20 21:00 18 99 08/02/20 20:44 86 24 132/76 98 (1) Diarrhea Diarrhea type: unspecified type Qualified Code(s): R19.7 - Diarrhea, unspecified
[2020-08-03] MEDS ORDERED: cefTRIAXone SODIUM 1,000 MG in DEXTROSE 5% 50 ML IV SCH (09:00)
[2020-08-03] MEDS: metroNIDAZOLE 500 MG/100 ML BAG IV SCH ×2 (09:31→17:18)
[2020-08-03] MEDS: CIPROFLOXACIN / D5W 400 MG/200 ML BAG IV SCH ×2 (09:31→20:59)
--- NOTE | 2020-08-03 10:36 | Cardiology Consultation ---
Date of Consultation August 03, 2020 Assessment & Plan (1) Near syncope: (2) Fever: (3) Tachycardia: (4) Weakness: (5) Diarrhea: (6) Atrial fibrillation: (7) CKD (chronic kidney disease), stage III: (8) History of coronary artery bypass graft: (9) Ischemic cardiomyopathy: Patient presents with a presyncopal episode in the setting of ongoing diarrhea. No arrhythmias upon presentation or telemetry overnight. Echocardiogram remains unchanged with low normal LV systolic function and an EF of 50 to 55%. At this point I believe his presyncopal episode was most likely orthostatic in nature given the ongoing diarrhea. We will continue to monitor on telemetry overnight and I will hold off on making any medication changes at this time. History of Present Illness Attending Physician: Jesus Manuel Patel, History of Present Illness It was my pleasure to see Mr. Gonzales in cardiac consultation today. He is a very pleasant Rory speaking only 85-year-old gentleman who presented to [facility] on 08/03/2020 with complaints of a near syncopal episode. The interview was conducted through review of medical records and discussion with the patient's son. On the evening of presentation the patient was going through his normal evening pressures when he felt dizzy. Later on that evening he was trying to go to the bathroom and again he became dizzy and his son reports that he almost passed out. He was brought in the emergency department where his initial work-up was unremarkable for except a mild temperature spike and he was admitted to telemetry. The patient's been having diarrhea for quite some time now and is scheduled undergo a colonoscopy on the . His son states that he is denied any complaints of chest pain, shortness of breath or palpitations. He has been compliant with his medications. Past medical history as per most recent outpatient cardiology note: 1. Stable coronary artery disease, no anginal symptoms. 2. Status post coronary artery bypass surgery 2005 3. Drug-eluting stent proximal LAD 2009 4. Chronic atrial fibrillation, chronic coumadin. Asymptomatic. 5. Dyslipidemia 6. History of ischemic cardiomyopathy with the last estimated left ventricular ejection fraction being around 55%. Allergies Allergy/AdvReac Type Severity Reaction Status Date / Time No Known Allergies Allergy Verified 08/02/20 20:24 Home Medications Medication Instructions Recorded Confirmed Type atorvastatin 40 mg PO DAILY 02/17/19 08/02/20 History metoprolol succinate 25 mg PO BID #60 tab 02/21/19 08/02/20 Rx tamsulosin 0.4 mg PO DAILY #0 cap 02/21/19 08/02/20 Rx warfarin 5 mg PO DAILY #30 tab 02/21/19 08/02/20 Rx famotidine 20 mg PO DAILY 08/02/20 08/02/20 History isosorbide mononitrate 15 mg PO DAILY 08/02/20 08/02/20 History prochlorperazine maleate 5 mg PO DIRECTED PRN 08/02/20 08/02/20 History [Compazine] Patient History Medical History (Updated 08/04/20 @ 11:31 by Sam Conde MD) BPH (benign prostatic hyperplasia) CAD (coronary artery disease) CKD (chronic kidney disease), stage III GERD (gastroesophageal reflux disease) HLD (hyperlipidemia) HTN (hypertension) Ischemic cardiomyopathy Surgical History History of cardiac cath 2010: KRISS to LAD at [facility] in [place] History of coronary artery bypass graft 2006: CABG X 3 in [place] Stented coronary artery Family History Sister Cancer Social History Smoking Status: Never smoker Hx Alcohol Use: No Hx Substance Use: No Preferred Language: Rory Communication Ability: Unable Communication Tools: IPad and Language Line Senior Software Engineer Senior Software Engineer Required: Yes Beliefs That Will Affect Care: None Current Living Situation: Family Current Living Situation Comment: lives with son and family Feels Safe at Home: Yes Safety Concerns: Feels Safe At This Time Assistive Devices: None Review of Systems Review of Systems: Other Physical Exam Physical Exam: General: Awake, alert and oriented x 3. No acute distress. HEENT: Normocephalic, atraumatic. Pupils equal, round and reactive to light and accommodation. Extraocular muscles are intact. Anicteric sclera. Moist mucous membranes. Neck: No JVD. No bruit. Cardiovascular: irregularly irregular, unable to appreciate murmur, rub or gallop. Pulmonary: Clear to auscultation bilaterally. No rales, rhonchi, or wheezing. Abdomen: Bowel sounds x 4, soft. No rebound, guarding or tenderness. No organomegaly. Extremities: No clubbing, cyanosis or edema. +2 pedal pulses bilaterally. Skin: Warm and dry. Results & Data ([facility]) Vital Signs (Past 12 Hours) Vital Signs Temp Pulse Pulse Resp BP Pulse Ox Pulse Ox 08/03/20 08:00 70 08/03/20 07:00 37.8 C H 93 H 20 160/89 H 99 08/03/20 03:34 37 C 76 18 130/64 97 08/02/20 23:57 37.1 C 70 80 18 137/66 99 99 (1) Fever Fever type: unspecified Qualified Code(s): R50.9 - Fever, unspecified (2) Diarrhea Diarrhea type: unspecified type Qualified Code(s): R19.7 - Diarrhea, unspecified (3) Atrial fibrillation Atrial fibrillation type: unspecified Qualified Code(s): I48.91 - Unspecified atrial fibrillation
--- NOTE | 2020-08-03 11:04 | Electrocardiogram Report ---
Test Reason : Blood Pressure : / mmHG Vent. Rate : 085 BPM Atrial Rate : 084 BPM P-R Int : 000 ms QRS Dur : 092 ms QT Int : 336 ms P-R-T Axes : 000 -56 125 degrees QTc Int : 399 ms Poor data quality, interpretation may be adversely affected Atrial fibrillation Left axis deviation Incomplete right bundle branch block Abnormal ECG When compared with ECG of 18-FEB-2019 09:22, No significant change was found Confirmed by Usman Crain ([id number]) on 08/03/2020 11:03:42 AM Referred By: REFERRED SELF Confirmed By:Karl Crain
--- NOTE | 2020-08-03 11:09 | Electrocardiogram Report ---
Test Reason : Blood Pressure : / mmHG Vent. Rate : 084 BPM Atrial Rate : 093 BPM P-R Int : 000 ms QRS Dur : 096 ms QT Int : 358 ms P-R-T Axes : 000 -74 090 degrees QTc Int : 423 ms Atrial fibrillation Left axis deviation Abnormal ECG When compared with ECG of 02-AUG-2020 19:09, (unconfirmed) No significant change was found Confirmed by Usman Crain ([id number]) on 08/03/2020 11:08:57 AM Referred By: REFERRED SELF Confirmed By:Karl Crain
[2020-08-03] MEDS: WARFARIN SOD 5 MG TAB PO SCH (15:49)
[2020-08-04] MEDS: metroNIDAZOLE 500 MG/100 ML BAG IV SCH ×2 (01:14→09:03)
[2020-08-04] MEDS: SODIUM CHLORIDE 0.9% 1000ML 1,000 ML IV SCH (01:15)
[2020-08-04 06:25] LABS: Basophils # (auto) 0.01 K/uL (0-0.2); Basophils % (auto) 0.2 %; Eosinophils # (auto) 0.12 K/uL (0-0.5); Eosinophils % (auto) 2.1 %; Hematocrit (blood only) 33.7 % (42-52); Hemoglobin 11.2 g/dL (14.0-18.0); Lymphocytes % (auto) 20.7 %; Mean Corpuscular Hemoglobin 30.1 pg (25-34); Mean Corpuscular Hgb Conc 33.2 g/dL (32-36); Mean Corpuscular Volume 90.6 fL (80-100); Mean Platelet Volume 10.8 fL (7.4-10.4); Monocytes # (auto) 0.53 K/uL (0.11-0.59); Monocytes % (auto) 9.1 %; Neutrophils # (auto) 3.95 K/uL (1.4-6.5); Neutrophils % (auto) 67.9 %; Platelet Count 137 K/uL (130-400); Red Blood Count 3.72 M/uL (4.7-6.1); White Blood Count 5.81 K/uL (4.8-10.8)
[2020-08-04 06:35] LABS: INR 1.4 (0.9-1.1); Prothrombin Time 14.7 Seconds (9.0-12.0)
[2020-08-04] MEDS: ACETAMINOPHEN 325 MG TAB PO PRN (06:52)
[2020-08-04 06:58] LABS: Albumin Level 2.7 gm/dl (3.4-5.0); BUN Creatinine Ratio 9.4 (10-20); Calcium 8.6 mg/dl (8.5-10.1); Creatinine Clr Calc Pharmacy 50.1 ml/min; Est GFR (African American) 73.2; Est GFR (Non-African American) 63.1; Potassium 3.8 mmol/L (3.5-5.1)
[2020-08-04 07:01] LABS: Albumin Globulin Ratio 0.7 (0.9-2); Bilirubin,Total 1.1 mg/dl (0.2-1); Globulin 3.8 gm/dl (2.5-4.0); Total Protein 6.5 gm/dl (6.4-8.2)
[2020-08-04] MEDS: CIPROFLOXACIN / D5W 400 MG/200 ML BAG IV SCH (09:02)
[2020-08-04] MEDS: ATORVASTATIN 40 MG TAB PO SCH (09:03)
[2020-08-04] MEDS: METOPROLOL SUCC 25MG EXT REL TAB PO SCH ×2 (09:03→20:46)
[2020-08-04] MEDS: ISOSORBIDE MONO EXTENDED REL 30 MG TABCR PO SCH (09:04)
[2020-08-04] MEDS: TAMSULOSIN HCL 0.4 MG CAP PO SCH (09:04)
[2020-08-04] MEDS: FAMOTIDINE 20 MG TAB PO SCH (09:05)
--- NOTE | 2020-08-04 09:50 | Electrocardiogram Report ---
Test Reason : Blood Pressure : / mmHG Vent. Rate : 087 BPM Atrial Rate : 227 BPM P-R Int : 000 ms QRS Dur : 100 ms QT Int : 364 ms P-R-T Axes : 000 -59 099 degrees QTc Int : 438 ms Atrial fibrillation with premature ventricular or aberrantly conducted complexes Left axis deviation Abnormal QRS-T angle, consider primary T wave abnormality Abnormal ECG When compared with ECG of 03-AUG-2020 07:11, No significant change was found Confirmed by Be Thomson ([id number]) on 08/04/2020 9:50:12 AM Referred By: REFERRED SELF Confirmed By:Be Thomson
--- NOTE | 2020-08-04 11:35 | Hospitalist Progress Note ---
Date of Service August 04, 2020 Assessment & Plan (1) Diarrhea: Discussed with son and the history taken from him He has been complaining of diarrhea for months and schedule for a colonoscopy on of this month as an outpatient Complains to have some lower quadrant discomfort No fever and/or chills, no nausea no vomiting CT of the abdomen pelvis did not show any diverticulitis We will stop Cipro and Flagyl Stool for C. difficile and culture Likely discharge tomorrow (2) Near syncope: Admitted with near syncope with significant cardiac history including atrial fibrillation, CAD with history of CABG and KRISS in LAD Likely vasovagal Appreciate cardiology input and recommendation ACS has been ruled out and echo of the heart reviewed We will continue current medications (3) Atrial fibrillation: Rate is controlled INR is subtherapeutic We will continue Coumadin (4) CAD (coronary artery disease): (5) HTN (hypertension): Remains controlled (6) HLD (hyperlipidemia): Continue statin CODE STATUS Full Discussed with the son Likely discharge tomorrow Admission and Anticipated Discharge Date Admission Date: August 03, 2020 Subjective 08/04/2020 The patient was seen and examined in medical telemetry unit Is an 85-year-old male with a significant past medical history of CAD status post CABG and stent placement, atrial fibrillation, ischemic cardiomyopathy, was admitted on 08/03/20 with ongoing diarrhea for months Associated with lower abdominal discomfort He also has had a near syncope episode prior to admission without any other cardiac symptoms Has been feeling much better with minimal discomfort in the lower abdomen Review of Systems Review of Systems: All systems reviewed and are unremarkable except as noted below Gastrointestinal: + bloating and + diarrhea/loose stools; no abdominal pain, no nausea and no vomiting Physical Exam Physical Exam: Lying in bed comfortably Constitutional: well developed and well nourished; not ill appearing Eyes: PERRL, conjunctivae normal, anicteric sclerae ENMT: external ear and nose normal, oropharynx normal Neck: trachea midline, no thyromegaly Respiratory: no respiratory distress Auscultation: lungs clear to auscultation bilaterally Cardiovascular: Rate/Rhythm: + irregularly irregular Heart Sounds: no murmur Extremities: no edema Gastrointestinal (Abdomen): Inspection/Auscultation: normal bowel sounds; abdomen not distended Percussion/Palpation: + abdomen tender (Minimally tender hypogastrium and lower quadrant) and abdomen soft Musculoskeletal: No acute arthritis in any joint Neurologic: Alert, awake and oriented x3 Results & Data Results & Data ([facility]) Vital Signs (Past 12 Hours) Vital Signs Temp Pulse Resp BP Pulse Ox 08/04/20 06:57 37.4 C 84 20 139/73 96 Laboratory Results Short CBC 08/04/20 Range/Units 05:57 WBC 5.81 (4.8-10.8) K/uL Hgb 11.2 L (14.0-18.0) g/dL Hct 33.7 L (42-52) % Plt Count 137 (130-400) K/uL BMP 08/04/20 05:57 Sodium 138 Potassium 3.8 Chloride 107 Carbon Dioxide 23 BUN 10 Creatinine 1.08 Glucose 111 H Calcium 8.6 Cardiac Enzymes 08/03/20 Range/Units 11:37 Troponin I 0.043 (0-0.045) ng/ml Liver Function 08/04/20 Range/Units 05:57 Total Bilirubin 1.1 H (0.2-1) mg/dl AST 39 H (15-37) U/L ALT 16 (12-78) U/L Alkaline Phosphatase 66 (45-117) U/L Albumin 2.7 L (3.4-5.0) gm/dl Medications Administered Current Inpatient Medications Acetaminophen (Acetaminophen 325 Mg Tab) 650 mg PO Q4H PRN PRN Reason: Pain or Fever Stop: 09/01/20 23:56 Last Admin: 08/04/20 06:52 Dose: 650 mg Documented by: Atorvastatin Calcium (Atorvastatin 40 Mg Tab) 40 mg PO DAILY [facility] Stop: 09/02/20 08:59 Last Admin: 08/04/20 09:03 Dose: 40 mg Documented by: Famotidine (Famotidine 20 Mg Tab) 20 mg PO DAILY [facility] Stop: 09/02/20 08:59 Last Admin: 08/04/20 09:05 Dose: 20 mg Documented by: Isosorbide Mononitrate (Isosorbide [place] Extended Rel 30 Mg Tabcr) 15 mg PO DAILY [facility] Stop: 09/02/20 08:59 Last Admin: 08/04/20 09:04 Dose: 15 mg Documented by: Metoprolol Succinate (Metoprolol Succ 25mg Ext Rel Tab) 25 mg PO BID [facility] Stop: 09/02/20 08:59 Last Admin: 08/04/20 09:03 Dose: 25 mg Documented by: Nitroglycerin (Nitroglycerin Sl 0.4 Mg/Tab Tab) 0.4 mg SL UD PRN PRN Reason: Chest Pain Stop: 09/01/20 23:56 Ondansetron HCl (Ondansetron Inj 2 Mg/Ml 2 Ml Vial) 4 mg IV Q6H PRN PRN Reason: Nausea Stop: 09/01/20 23:56 Tamsulosin HCl (Tamsulosin Hcl 0.4 Mg Cap) 0.4 mg PO DAILY [facility] Stop: 09/02/20 08:59 Last Admin: 08/04/20 09:04 Dose: 0.4 mg Documented by: Warfarin Sodium (Warfarin Sod 5 Mg Tab) 5 mg PO DAILY@1600 [facility] Stop: 09/02/20 15:59 Last Admin: 08/03/20 15:49 Dose: 5 mg Documented by: (1) Diarrhea Diarrhea type: unspecified type Qualified Code(s): R19.7 - Diarrhea, unspecified (2) Atrial fibrillation Atrial fibrillation type: unspecified Qualified Code(s): I48.91 - Unspecified atrial fibrillation
--- NOTE | 2020-08-04 13:23 | Cardiology Progress Note ---
Date of Service August 04, 2020 Assessment & Plan (1) Near syncope: (2) Fever: (3) Tachycardia: (4) Weakness: (5) Diarrhea: (6) Atrial fibrillation: (7) CKD (chronic kidney disease), stage III: (8) History of coronary artery bypass graft: (9) Ischemic cardiomyopathy: Patient presents with a presyncopal episode in the setting of ongoing diarrhea. No arrhythmias upon presentation or telemetry overnight. Echocardiogram remains unchanged with low normal LV systolic function and an EF of 50 to 55%. At this point I believe his presyncopal episode was most likely orthostatic in nature given the ongoing diarrhea. No further cardiac testing or intervention is necessary at this time. His son was concerned about his variable blood pressures however, given his volume depletion I believe this is to be expected and his current dose of metoprolol will be continued. He was also questioning holding his Coumadin prior to the colonoscopy and he was counseled to follow recommendations as per our [place] clinic. Okay to discharge from a cardiac standpoint. Admission and Anticipated Discharge Date Admission Date: August 03, 2020 Subjective Patient seen and examined, chart reviewed. Spoke with son by phone. No events reported overnight by nursing. Telemetry reviewed: Atrial fibrillation rate controlled. Review of Systems Review of Systems: Other Physical Exam Physical Exam: General: Awake, alert and oriented x 3. No acute distress. HEENT: Normocephalic, atraumatic. Pupils equal, round and reactive to light and accommodation. Extraocular muscles are intact. Anicteric sclera. Moist mucous membranes. Neck: No JVD. No bruit. Cardiovascular: irregularly irregular, unable to appreciate murmur, rub or gallop. Pulmonary: Clear to auscultation bilaterally. No rales, rhonchi, or wheezing. Abdomen: Bowel sounds x 4, soft. No rebound, guarding or tenderness. No organomegaly. Extremities: No clubbing, cyanosis or edema. +2 pedal pulses bilaterally. Skin: Warm and dry. Results & Data ([facility]) Vital Signs (Past 12 Hours) Vital Signs Temp Pulse Resp BP Pulse Ox 08/04/20 11:29 36.4 C L 85 18 128/72 95 08/04/20 06:57 37.4 C 84 20 139/73 96 (1) Fever Fever type: unspecified Qualified Code(s): R50.9 - Fever, unspecified (2) Diarrhea Diarrhea type: unspecified type Qualified Code(s): R19.7 - Diarrhea, unspecified (3) Atrial fibrillation Atrial fibrillation type: unspecified Qualified Code(s): I48.91 - Unspecified atrial fibrillation
[2020-08-04] MEDS: WARFARIN SOD 5 MG TAB PO SCH (17:17)
[2020-08-05 06:35] LABS: Basophils # (auto) 0.01 K/uL (0-0.2); Basophils % (auto) 0.2 %; Eosinophils # (auto) 0.12 K/uL (0-0.5); Eosinophils % (auto) 2.4 %; Hematocrit (blood only) 33.3 % (42-52); Hemoglobin 10.9 g/dL (14.0-18.0); Lymphocytes # (auto) 1.37 K/uL (1.2-3.4); Lymphocytes % (auto) 26.9 %; Mean Corpuscular Hemoglobin 29.7 pg (25-34); Mean Corpuscular Hgb Conc 32.7 g/dL (32-36); Mean Corpuscular Volume 90.7 fL (80-100); Mean Platelet Volume 11.3 fL (7.4-10.4); Monocytes # (auto) 0.57 K/uL (0.11-0.59); Monocytes % (auto) 11.2 %; Neutrophils # (auto) 3.02 K/uL (1.4-6.5); Neutrophils % (auto) 59.3 %; Platelet Count 115 K/uL (130-400); RDW Coefficient of Variation 14.8 % (11.5-14.5); RDW Standard Deviation 49.2 fL (36.4-46.3); Red Blood Count 3.67 M/uL (4.7-6.1); White Blood Count 5.09 K/uL (4.8-10.8)
[2020-08-05 06:45] LABS: INR 1.4 (0.9-1.1); Prothrombin Time 14.9 Seconds (9.0-12.0)
[2020-08-05 07:16] LABS: Albumin Level 2.5 gm/dl (3.4-5.0); BUN Creatinine Ratio 9.2 (10-20); Calcium 8.6 mg/dl (8.5-10.1); Est GFR (Non-African American) 60.4; Potassium 3.7 mmol/L (3.5-5.1)
[2020-08-05 07:19] LABS: Albumin Globulin Ratio 0.6 (0.9-2); Total Protein 6.5 gm/dl (6.4-8.2)
[2020-08-05] MEDS: TAMSULOSIN HCL 0.4 MG CAP PO SCH (09:42)
[2020-08-05] MEDS: ISOSORBIDE MONO EXTENDED REL 30 MG TABCR PO SCH (09:42)
[2020-08-05] MEDS: METOPROLOL SUCC 25MG EXT REL TAB PO SCH (09:42)
[2020-08-05] MEDS: ATORVASTATIN 40 MG TAB PO SCH (09:42)
[2020-08-05] MEDS: FAMOTIDINE 20 MG TAB PO SCH (09:42)
--- NOTE | 2020-08-05 12:51 | Hospitalist Progress Note ---
Date of Service August 05, 2020 Assessment & Plan (1) Diarrhea: Discussed with son and the history taken from him He has been complaining of diarrhea for months and schedule for a colonoscopy on of this month as an outpatient Complains to have some lower quadrant discomfort No fever and/or chills, no nausea no vomiting CT of the abdomen pelvis did not show any diverticulitis We will stop Cipro and Flagyl Stool for C. difficile and culture-still not collected Denies any abdominal discomfort and/or pain, nausea and or vomiting Discussed with the son and the patient will be discharged this afternoon (2) Near syncope: Admitted with near syncope with significant cardiac history including atrial fibrillation, CAD with history of CABG and KRISS in LAD Likely vasovagal Appreciate cardiology input and recommendation ACS has been ruled out and echo of the heart reviewed We will continue current medications Was advised to drink more fluid (3) Atrial fibrillation: Rate is controlled INR is subtherapeutic We will continue Coumadin-INR remains 1.4 Do not increase the Coumadin dose knowing that he is going to have colonoscopy on of this month (4) CAD (coronary artery disease): (5) HTN (hypertension): Remains controlled (6) HLD (hyperlipidemia): Continue statin CODE STATUS Full Discussed with the son will be discharged this afternoon Admission and Anticipated Discharge Date Admission Date: August 03, 2020 Subjective 08/04/2020 The patient was seen and examined in medical telemetry unit Is an 85-year-old male with a significant past medical history of CAD status post CABG and stent placement, atrial fibrillation, ischemic cardiomyopathy, was admitted on 08/03/20 with ongoing diarrhea for months Associated with lower abdominal discomfort He also has had a near syncope episode prior to admission without any other cardiac symptoms Has been feeling much better with minimal discomfort in the lower abdomen 08/05/2020 The patient was seen and examined in medical telemetry unit Conversation with the patient was carried out to his son who is an ENT physician Denies any fever and/or chills, abdominal pain, nausea or vomiting, any problem with urine and he has chronic diarrhea as before He has been tolerating usual diet Review of Systems Review of Systems: All systems reviewed and are unremarkable except as noted below Gastrointestinal: + diarrhea/loose stools; no abdominal pain, no bloating, no nausea and no vomiting Physical Exam Physical Exam: Lying in bed comfortably Constitutional: well developed and well nourished; not ill appearing Eyes: PERRL, conjunctivae normal, anicteric sclerae ENMT: external ear and nose normal, oropharynx normal Neck: trachea midline, no thyromegaly Respiratory: no respiratory distress Auscultation: lungs clear to auscultation bilaterally Cardiovascular: Rate/Rhythm: + irregularly irregular Heart Sounds: no murmur Extremities: no edema Gastrointestinal (Abdomen): Inspection/Auscultation: normal bowel sounds; abdomen not distended Percussion/Palpation: + abdomen tender (Minimally tender hypogastrium and lower quadrant) and abdomen soft Musculoskeletal: No acute arthritis in any joint Neurologic: Alert and awake moving all limbs. Lymphatic: no cervical or axillary lymphadenopathy Results & Data Results & Data ([facility]) Vital Signs (Past 12 Hours) Vital Signs Temp Pulse Pulse Resp BP BP Pulse Ox 08/05/20 11:45 36.9 C 96 H 24 106/62 98 08/05/20 08:01 36.9 C 97 H 14 128/71 97 08/05/20 07:45 92 H 08/05/20 03:07 37 C 74 18 115/60 98 Laboratory Results Short CBC 08/05/20 Range/Units 05:35 WBC 5.09 (4.8-10.8) K/uL Hgb 10.9 L (14.0-18.0) g/dL Hct 33.3 L (42-52) % Plt Count 115 L (130-400) K/uL BMP 08/05/20 05:35 Sodium 138 Potassium 3.7 Chloride 107 Carbon Dioxide 26 BUN 10 Creatinine 1.12 Glucose 89 Calcium 8.6 Liver Function 08/05/20 Range/Units 05:35 Total Bilirubin 1.0 (0.2-1) mg/dl AST 62 H (15-37) U/L ALT 20 (12-78) U/L Alkaline Phosphatase 60 (45-117) U/L Albumin 2.5 L (3.4-5.0) gm/dl Medications Administered Current Inpatient Medications Acetaminophen (Acetaminophen 325 Mg Tab) 650 mg PO Q4H PRN PRN Reason: Pain or Fever Stop: 09/01/20 23:56 Last Admin: 08/04/20 06:52 Dose: 650 mg Documented by: Atorvastatin Calcium (Atorvastatin 40 Mg Tab) 40 mg PO DAILY [facility] Stop: 09/02/20 08:59 Last Admin: 08/05/20 09:42 Dose: 40 mg Documented by: Famotidine (Famotidine 20 Mg Tab) 20 mg PO DAILY [facility] Stop: 09/02/20 08:59 Last Admin: 08/05/20 09:42 Dose: 20 mg Documented by: Isosorbide Mononitrate (Isosorbide [place] Extended Rel 30 Mg Tabcr) 15 mg PO DAILY [facility] Stop: 09/02/20 08:59 Last Admin: 08/05/20 09:42 Dose: 15 mg Documented by: Metoprolol Succinate (Metoprolol Succ 25mg Ext Rel Tab) 25 mg PO BID [facility] Stop: 09/02/20 08:59 Last Admin: 08/05/20 09:42 Dose: 25 mg Documented by: Nitroglycerin (Nitroglycerin Sl 0.4 Mg/Tab Tab) 0.4 mg SL UD PRN PRN Reason: Chest Pain Stop: 09/01/20 23:56 Ondansetron HCl (Ondansetron Inj 2 Mg/Ml 2 Ml Vial) 4 mg IV Q6H PRN PRN Reason: Nausea Stop: 09/01/20 23:56 Tamsulosin HCl (Tamsulosin Hcl 0.4 Mg Cap) 0.4 mg PO DAILY [facility] Stop: 09/02/20 08:59 Last Admin: 08/05/20 09:42 Dose: 0.4 mg Documented by: Warfarin Sodium (Warfarin Sod 5 Mg Tab) 5 mg PO DAILY@1600 [facility] Stop: 09/02/20 15:59 Last Admin: 08/04/20 17:17 Dose: 5 mg Documented by: (1) Diarrhea Diarrhea type: unspecified type Qualified Code(s): R19.7 - Diarrhea, unspecified (2) Atrial fibrillation Atrial fibrillation type: unspecified Qualified Code(s): I48.91 - Unspecified atrial fibrillation
--- NOTE | 2020-08-05 16:24 | Discharge Summary ---
Date of Service August 05, 2020 Admission HPI Per Admitting Provider DICTATED BY: Dominick Cid MD DATE OF ADMISSION: 08/02/2020 CHIEF COMPLAINT: Near syncope. HISTORY OF PRESENT ILLNESS: This is an 85-year-old male with past medical history significant for CAD status post CABG, atrial fibrillation, ischemic cardiomyopathy, hyperlipidemia, GERD, chronic kidney disease stage III, who was brought in from the house because of near syncope. The patient was having prayer in the evening when he felt dizzy. Later again when he was trying to go to bathroom, he almost passed out, so he was brought into the hospital. In the ER, he had mild temp spike. Otherwise, his labs were okay. Chest x-ray and CT of the head and CT of the abdomen and pelvis, preliminary report unremarkable. The patient is currently resting comfortably and hemodynamically stable. The patient denies any cough. No chest pain, no shortness of breath, no nausea, no vomiting. He is having chronic diarrhea ongoing for several months, but the last 1-2 months he is having some blood in the stools, he is supposed to get colonoscopy done on 08/12/2020. Previously, he was found to have a small polyp. Denies any abdominal pain. No nausea, no vomiting. Appetite is not that great chronically as per the son, and no loss of sense of smell or taste, no runny nose, no sore throat, no headache, no blurred vision, no earache. No exposure to any COVID patients. His COVID was negative in the ER. Admission Exam Per Admitting Provider GENERAL: The patient is of moderate build, not in acute distress. VITAL SIGNS: Temperature 38.3, pulse 86, respiratory rate 18, blood pressure 132/76, oxygen 99% on room air. HEENT: Pupils equal, round, and reactive to light. Oral mucosa moist. NECK: No neck masses seen. Neck is supple. CARDIOVASCULAR: S1, S2 heard. Regular rate and rhythm. No murmur, no gallop. RESPIRATORY SYSTEM: Normal AP diameter. No accessory muscle use. No wheezing, no crackles. ABDOMEN: Soft, bowel sounds present. Mild lower abdominal discomfort. No guarding, no rigidity, no distention. CENTRAL NERVOUS SYSTEM: Cranial nerves II-XII grossly intact. Nonfocal. EXTREMITIES: No edema, no erythema. Principal Diagnosis Chronic diarrhea, near syncope, atrial fibrillation, hypertension, CAD Discharge Exam Constitutional well developed and well nourished; not ill appearing Eyes PERRL, conjunctivae normal, anicteric sclerae ENMT external ear and nose normal, oropharynx normal Neck trachea midline, no thyromegaly Respiratory no respiratory distress Auscultation: lungs clear to auscultation bilaterally Cardiovascular Rate/Rhythm: + irregularly irregular Heart Sounds: no murmur Extremities: no edema Gastrointestinal (Abdomen) Inspection/Auscultation: normal bowel sounds; abdomen not distended Percussion/Palpation: + abdomen tender (Minimally tender hypogastrium and lower quadrant) and abdomen soft Lymphatic no cervical or axillary lymphadenopathy Discharge Data Allergies Allergy/AdvReac Type Severity Reaction Status Date / Time No Known Allergies Allergy Verified 08/02/20 20:24 Consultations 08/02/20 21:21 ED Decision to Admit Stat 08/02/20 23:57 Consult Case Management - Discharge Planning Routine 08/03/20 08:40 Consult Cardiology Routine 08/03/20 08:51 Consult Infectious Diseases Routine Ordered Studies 08/02/20 19:33 CT abd pelvis IV con only Urgent CT head/brain wo con Urgent 08/02/20 22:21 CT chest diagnostic wo con Urgent Hospital Course (1) Diarrhea: Discussed with son and the history taken from him He has been complaining of diarrhea for months and schedule for a colonoscopy on of this month as an outpatient Complains to have some lower quadrant discomfort No fever and/or chills, no nausea no vomiting CT of the abdomen pelvis did not show any diverticulitis We will stop Cipro and Flagyl Stool for C. difficile and culture-still not collected Denies any abdominal discomfort and/or pain, nausea and or vomiting Discussed with the son and the patient will be discharged this afternoon (2) Near syncope: Admitted with near syncope with significant cardiac history including atrial fibrillation, CAD with history of CABG and KRISS in LAD Likely vasovagal Appreciate cardiology input and recommendation ACS has been ruled out and echo of the heart reviewed We will continue current medications Was advised to drink more fluid (3) Atrial fibrillation: Rate is controlled INR is subtherapeutic We will continue Coumadin-INR remains 1.4 Do not increase the Coumadin dose knowing that he is going to have colonoscopy on of this month (4) CAD (coronary artery disease): (5) HTN (hypertension): Remains controlled (6) HLD (hyperlipidemia): Continue statin CODE STATUS Full Discussed with the son will be discharged this afternoon Total Time Total Time Spent Total Time Spent (In Minutes): 35 minutes Total Time Includes: Examination of the Patient, Discharge Planning, Medication Reconciliation and Communication With Other Providers Discharge Plan Discharge Items Patient Disposition: Home - Self-Care Reason For Visit: NEAR SYNCOPE Discharge Diagnosis: Chronic diarrhea, near syncope, atrial fibrillation, hypertension, CAD Condition on Discharge: Good Activity: Resume your previous activity Non-emergency contact: Primary Care Provider Call non-emergency contact if: you have any medication questions and your symptoms worsen Follow-up/Referrals: Anita Rodriguez MD [Hospitalist] - (Date & Time 08/11/2020 11:00 AM Provider Anita Rodriguez MD Department General Internal Medicine [facility] ) Diet: Heart Healthy and Vegetarian (Lacto-Ovo) Addtl Attending Provider Instructions: Please take precaution to avoid falls. Keep your appointment for the colonoscopy as an outpatient Follow the instructions about Coumadin before the colonoscopy as was advised to you Pending Studies at Discharge: No Stand-Alone Forms: My [facility] [employer], Smoking Cessation Medications and DC Order Prescriptions: Continued atorvastatin 40 mg tablet 40 mg PO DAILY RF: 0 metoprolol succinate 25 mg tablet extended release 24 hr 25 mg PO BID Qty: 60 RF: 1 warfarin 5 mg tablet 5 mg PO DAILY Qty: 30 RF: 1 tamsulosin 0.4 mg capsule 0.4 mg PO DAILY Qty: 0 RF: 0 isosorbide mononitrate 30 mg tablet extended release 24 hr 15 mg PO DAILY RF: 0 famotidine 20 mg tablet 20 mg PO DAILY RF: 0 prochlorperazine maleate [Compazine] 5 mg Tablet 5 mg PO DIRECTED PRN (Reason: Nausea And Vomiting) RF: 0 Discharge Orders: Discharge Order (Routine); Ordered 08/05/20 Ordered By: Sam Conde Admission Data Admit Date/Time: 08/03/20 08:40 Attending Provider: Sam Conde Admit Provider: Dominick Cid Primary Care Provider: PCP,NO Other Providers: Dominick Cid ; Pool Gan ; Hugh Alcaraz ; Lj Bee ; Neville Cornejo ; Da Khan ; Roberto Pascual ; Nelly Figueroa ; Precious Gordon ; Joni Jason ; Roberto De La Torre ; Rico Humphreys ; Jerry Reeves I. ; Miguel Osorio II ; Melinda Reece ; Roberto Phillips ; Jesus Manuel Patel Other Interventions: Discharge Summary Assessment (RN) Last Done: 08/05/20 14:35
== END 2020-08-05 15:50 | disposition home or self-care (01) | DRG 392 ==
LOC: 2N 19:03 → ED 19:03 → 2N 23:18 → SUATTDRO 08-03 08:40